=== PATIENT | male | born 1940 | race Caucasian/White ===

== ENCOUNTER 2016-06-24 17:02 | Emergency (ER) | payer MEDICARE, OTHER ==
--- NOTE | 2016-06-24 17:16 | ER Document Report ---
ED Medical Screen (RME) - General Stated Complaint: R KNEE INJURY Mode of Arrival: Wheelchair Information source: Patient Notes: Mr. moreland presents via the EMS for right knee pain. Reports he fell 4 hours in shower. He can put weight on the knee. He got dressed, put a brace on and called EMS. Did not hit his head. No change in LOC. I have greeted and performed a rapid initial assessment of this patient. A comprehensive ED assessment and evaluation of the patient, analysis of test results and completion of the medical decision making process will be conducted by additional ED providers. TRAVEL OUTSIDE OF THE [place] IN LAST 30 DAYS: No
--- NOTE | 2016-06-24 19:43 | ER Document Report ---
ED Extremity Problem, Lower - General Mode of Arrival: Wheelchair Information source: Patient, Relative - spouse TRAVEL OUTSIDE OF THE [place] IN LAST 30 DAYS: No - HPI Location: Knee - right Occurred: Other - see HPI note - General Chief Complaint: Knee Pain Stated Complaint: R KNEE INJURY Notes: Patient is a 76 year old male presenting to the ED for right knee pain. Patient states he fell while trying to get into the shower. Patient was helped up by his and took his shower. Patient was later sitting and attempted to get up to go to the bathroom when he had a lot of knee pain. Patient states his pain started directly after the fall but got worse as the night went on. Patient landed on his rear but his states that the patient's legs were in strange directions when he fell. Patient denies any head or neck pain. Patient also has had some increased pain in his knees over the past 6 months. Patient has no known allergies. (MASOUD DIGGS) - Related Data Allergies/Adverse Reactions: No Known Allergies Allergy (Unverified 06/24/16 17:16) Past Medical History - General Information source: Patient, Relative - spouse - Social History Smoking Status: Never Smoker Cigarette use (# per day): No Chew tobacco use (# tins/day): No Frequency of alcohol use: Rare Drug Abuse: None Family History: None Patient has suicidal ideation: No Patient has homicidal ideation: No Musculoskeltal Medical History: Reports Hx Arthritis - right knee Surgical Hx: Negative Review of Systems - Review of Systems Constitutional: No symptoms reported EENT: No symptoms reported Cardiovascular: No symptoms reported Respiratory: No symptoms reported Gastrointestinal: No symptoms reported Genitourinary: No symptoms reported Male Genitourinary: No symptoms reported Musculoskeletal: See HPI Skin: No symptoms reported Hematologic/Lymphatic: No symptoms reported Neurological/Psychological: No symptoms reported -: Yes All other systems reviewed and negative Physical Exam - Vital signs Interpretation: Hypertensive - General General appearance: Appears well, Alert In distress: Mild - HEENT Head: Normocephalic, Atraumatic Eyes: Normal Pupils: PERRL Mucous membranes: Moist - Respiratory Respiratory status: No respiratory distress Chest status: Nontender Breath sounds: Normal Chest palpation: Normal - Cardiovascular Rhythm: Regular Heart sounds: Normal auscultation Murmur: No - Abdominal Inspection: Normal Distension: No distension Bowel sounds: Normal Tenderness: Nontender Organomegaly: No organomegaly - Back Back: Normal, Nontender - Extremities General upper extremity: Normal inspection, Normal ROM, Normal strength General lower extremity: Other - no exterior sign of trauma, no bony tenderness , mild tenderness at posterior lateral aspect of proximal fibula, no ligamentous instability, no tenderness to the ankle, foot, or hip, good pulses bilaterally, no leg edema Shoulder: Laceration - Neurological Neuro grossly intact: Yes Cognition: Normal Yin Coma Scale Eye Opening: Spontaneous Yin Coma Scale Verbal: Oriented Yin Coma Scale Motor: Obeys Commands [place] Coma Scale Total: 15 Speech: Normal Sensory: Normal - Psychological Associated symptoms: Normal affect, Normal mood - Skin Skin Temperature: Warm Skin Moisture: Dry Discharge - Discharge Clinical Impression: Sprain of knee Condition: Stable Disposition: HOME, SELF-CARE Instructions: Ice & Elevation ([facility]), Knee Immobilizing Splint ([facility]), Sprained Knee ([facility]), Oral Narcotic Medication ([facility]) Additional Instructions: knee Sprain Your injury is a sprain. A sprain results from stretching or tearing of the ligaments, usually from a twisting injury. The ligaments will require time and protection in order to heal properly. Many sprains are quite disabling and should be taken seriously. The usual initial treatment of sprains is cold packs, elevation, and rest of the injured area. Your physician has assessed the seriousness of your ligament injury, and has outlined a treatment plan. Understand that this treatment may change, depending on how you progress. If a re-examination was recommended, it is important that you follow up as instructed. Call the doctor any time if there is severe pain, numbness, or loss of function in the injured area. Follow-up with your primary care physician in 3-4 days return for increasing worsening or new symptoms Prescriptions: Hydrocodone/Acetaminophen [[place]bridge 5-325 mg Tablet] 1 tab PO TID #20 tablet Referrals: BREE KAUFFMAN PA-C [Primary Care Provider] - Follow up as needed Scribe Documentation - Scribe Written by Sita:: Masoud Diggs 06/24/16 21:21 acting as scribe for :: Chris
[2016-06-24 20:51] VITALS: BP 138/80
== END 2016-06-24 20:47 | disposition home or self-care (01) ==
LOC: ER 17:02
DX: S83.91XA Sprain of unspecified site of right knee, initial encounter (principal); S41.019A Laceration without foreign body of unspecified shoulder, initial encounter; W18.2XXA Fall in (into) shower or empty bathtub, initial encounter; Y93.89 Activity, other specified; Y92.002 Bathroom of unspecified non-institutional (private) residence as the place of occurrence of the external cause; M17.11 Unilateral primary osteoarthritis, right knee; M25.561 Pain in right knee
CPT/HCPCS: 99284; 73564; 70450; L1830

== ENCOUNTER → 2016-07-31 | Outpatient (CLI) | payer MEDICARE, OTHER ==
[2016-07-31 13:07] LABS: ABSOLUTE BASOPHILS # (AUTO) 0.1 10^3/uL (0.0-0.2); ABSOLUTE EOSINOPHILS # (AUTO) 0.1 10^3/uL (0.0-0.6); ABSOLUTE LYMPHOCYTES (AUTO) 2.7 10^3/uL (0.5-4.7); ABSOLUTE MONOCYTES (AUTO) 0.5 10^3/uL (0.1-1.4); ABSOLUTE NEUT (AUTO) 5.1 10^3/uL (1.7-8.2); BASOPHILS % (AUTO) 0.7 % (0-2); HEMATOCRIT 40.7 % (37.9-51.0); HEMOGLOBIN 13.9 g/dL (13.5-17.0); LYMPHOCYTES % (AUTO) 31.8 % (13-45); MEAN CORPUSCULAR HEMOGLOBIN 31.3 pg (27.0-33.4); MEAN CORPUSCULAR HGB CONC 34.2 g/dL (32.0-36.0); MEAN CORPUSCULAR VOLUME 92 fl (80-97); MONOCYTES % (AUTO) 6.2 % (3-13); RED BLOOD COUNT 4.45 10^6/uL (4.35-5.55); RED CELL DISTRIBUTION WIDTH 13.8 % (11.5-14.0); SEGMENTED NEUTROPHILS % (AUTO) 60.3 % (42-78); WHITE BLOOD COUNT 8.4 10^3/uL (4.0-10.5)
--- NOTE | 2016-07-31 13:18 | EKG REPORT ---
SEVERITY:- NORMAL ECG - SINUS RHYTHM : Confirmed by: Armando Barba MD 31-Jul-2016 13:17:31
[2016-07-31 13:32] LABS: ANION GAP 16 (5-19); BLOOD UREA NITROGEN 18 mg/dL (7-20); CALCIUM 10.3 mg/dL (8.4-10.2); CARBON DIOXIDE 31 mmol/L (22-30); CHLORIDE 97 mmol/L (98-107); CREATININE RESULT 0.76 mg/dL (0.52-1.25); GLUCOSE 191 mg/dL (75-110); SODIUM 144.1 mmol/L (137-145)
== END ==
LOC: OD 11:45
PROVIDERS: ATTEND Orthopaedic Surgery
DX: M25.561 Pain in right knee (principal)
CPT/HCPCS: 36415; 71020; 80048; 85025; 93005; 93010

== ENCOUNTER 2017-05-28 23:05 | Emergency (ER) | payer MEDICARE, OTHER ==
[2017-05-28] MEDS ORDERED: RACEPINEPHRINE HCL 2.25% NEB 0.5 ML AMPUL NEB ONE (23:45)
[2017-05-29] MEDS ORDERED: FUROSEMIDE INJ/PF 100 MG/10 ML SDV IV ONE
--- NOTE | 2017-05-29 00:05 | ER Document Report ---
ED General - General Chief Complaint: Cough Stated Complaint: COUGH Time Seen by Provider: 05/28/17 23:36 Mode of Arrival: Ambulatory Information source: Patient TRAVEL OUTSIDE OF THE [place] IN LAST 30 DAYS: No COUNTRY TRAVELED TO/FROM: [facility] Notes: Patient is a 77-year-old male history of 6 cardiac stents last placement August 2016 with history of hypercholesterolemia hypertension and type 2 diabetes presents with report of progressive lower extremity, swelling with nonproductive cough and dyspnea on exertion and orthopnea for the past 2 weeks. The patient is supposed to be taking Lasix 20 mg, but he has not had any for a month as he complains it makes him urinate too frequently. Patient denies any chest pain or abdominal pain or nausea or vomiting. The patient reports no productive cough or fever or exposure to anyone who has been sick. Medications metformin, glyburide, a statin, Brilinta, metoprolol 12.5 mg XR, Lasix 20 mg daily, but the patient is not taking the Lasix for over a month. - Related Data Allergies/Adverse Reactions: No Known Allergies Allergy (Unverified 06/24/16 17:16) Past Medical History - General Information source: Patient - The - Social History Smoking Status: Former Smoker Chew tobacco use (# tins/day): No Frequency of alcohol use: None Drug Abuse: None Lives with: Family Family History: None Patient has suicidal ideation: No Patient has homicidal ideation: No - Past Medical History Cardiac Medical History: Reports: Hx Hypercholesterolemia, Hx Hypertension Endocrine Medical History: Reports: Hx Diabetes Mellitus Type 2 Renal/ Medical History: Denies: Hx Peritoneal Dialysis Musculoskeltal Medical History: Reports Hx Arthritis - right knee Past Surgical History: Reports: Hx Cardiac Catheterization - 6stents, Hx Orthopedic Surgery - R knee - Immunizations Hx Diphtheria, Pertussis, Tetanus Vaccination: Yes Review of Systems - Review of Systems Notes: REVIEW OF SYSTEMS: CONSTITUTIONAL : Denies fever, chills, or sweats. Denies recent illness. EENT: Denies eye, ear, throat, or mouth pain or symptoms. Denies nasal or sinus congestion or discharge. Denies throat, tongue, or mouth swelling or difficulty swallowing. CARDIOVASCULAR: Denies chest pain. Denies palpitations or racing or irregular heart beat. RESPIRATORY: Denies wheezing. GASTROINTESTINAL: Denies abdominal pain or distention. Denies nausea, vomiting , or diarrhea. Denies blood in vomitus, stools, or per rectum. Denies black, tarry stools. Denies constipation. GENITOURINARY: Denies difficulty urinating, painful urination, burning, frequency, blood in urine, or discharge. MUSCULOSKELETAL: Denies back or neck pain or stiffness. SKIN: Denies rash, lesions or sores. HEMATOLOGIC : Denies easy bruising or bleeding. LYMPHATIC: Denies swollen, enlarged glands. NEUROLOGICAL: Denies confusion or altered mental status. Denies passing out or loss of consciousness. Denies dizziness or lightheadedness. Denies headache. Denies weakness or paralysis or loss of use of either side. Denies problems with gait or speech. Denies sensory loss, numbness, or tingling. Denies seizures. PSYCHIATRIC: Denies anxiety or stress. Denies depression, suicidal ideation, or homicidal ideation. ALL OTHER SYSTEMS REVIEWED AND NEGATIVE. Dictation was performed using [employer] voice recognition software Physical Exam - Vital signs Vitals: Temp Pulse Resp BP Pulse Ox 97.5 F 74 16 162/74 H 96 05/28/17 23:10 05/28/17 23:10 05/28/17 23:10 05/28/17 23:10 05/28/17 23:10 - Notes Notes: PHYSICAL EXAMINATION: GENERAL: Well-appearing, well-nourished and in no acute distress. HEAD: Atraumatic, normocephalic. EYES: Pupils equal round and reactive to light, extraocular movements intact, sclera anicteric, conjunctiva are normal. ENT: Nares patent, oropharynx clear without exudates. Moist mucous membranes. NECK: Normal range of motion, supple without lymphadenopathy. Very mild JVD LUNGS: No wheezes, but the pt has rales both bases. HEART: Regular rate and rhythm with 1/6 TENA over apex. ABDOMEN: Soft, nontender, nondistended abdomen. No guarding, no rebound. No masses appreciated. Musculoskeletal: Normal range of motion, no pitting or edema. No cyanosis. NEUROLOGICAL: Cranial nerves grossly intact. Normal speech, normal gait. Normal sensory, motor exams PSYCH: Normal mood, normal affect. SKIN: Warm, Dry, normal turgor, no rashes or lesions noted. Course - Re-evaluation Re-evalutation: 05/29/17 00:36 Patient was given IV Lasix.. 05/29/17 02:03 Patient diuresed over 1 L of urine and felt better. Patient had stable vitals with good oxygen saturation and a stable blood pressure and was ambulatory without complaint or dyspnea. Troponin was negative. There is no renal failure. There is no anemia. BNP was consistent with mild CHF. Chest x-ray overall was nondiagnostic. Patient and his were counseled that he needed to take his medications regularly and he will follow-up with local practitioner. - Vital Signs Vital signs: Temp Pulse Resp BP Pulse Ox 97.5 F 74 23 H 162/74 H 99 05/28/17 23:10 05/28/17 23:10 05/29/17 00:04 05/28/17 23:10 05/29/17 00:10 - Laboratory Result Diagrams: 05/29/17 00:20 05/29/17 00:20 Laboratory results interpreted by me: 05/29/17 05/29/17 05/29/17 00:20 00:20 00:20 RBC 4.12 L Hgb 12.7 L RDW 14.4 H Glucose 219 H ALT 20 L NT-Pro-B Natriuret Pep 1540 H - EKG Interpretation by De EKG shows normal: Sinus rhythm Additional EKG results interpreted by me: 05/29/17 00:35 EKG as interpreted by pr showed normal sinus rhythm heart rate is 73. There is no gross evidence for acute [place] or ischemia noted. There was 1 PVC noted. There is no significant change when compared to previous EKG reviewed from . Discharge - Discharge Clinical Impression: CHF (congestive heart failure) Qualifiers: Heart failure type: unspecified Heart failure chronicity: acute Qualified Code( s): I50.9 - Heart failure, unspecified Condition: Stable Disposition: HOME, SELF-CARE Instructions: Congestive Heart Failure ([facility]) Additional Instructions: Take your medications regularly. Return to the emergency department case of difficulty breathing or chest pain. Referrals: LYNDA RIOS MD [ACTIVE STAFF] - Follow up in 3-5 days
[2017-05-29 00:32] LABS: ABSOLUTE BASOPHILS # (AUTO) 0.1 10^3/uL (0.0-0.2); ABSOLUTE EOSINOPHILS # (AUTO) 0.2 10^3/uL (0.0-0.6); ABSOLUTE LYMPHOCYTES (AUTO) 2.3 10^3/uL (0.5-4.7); ABSOLUTE MONOCYTES (AUTO) 0.6 10^3/uL (0.1-1.4); ABSOLUTE NEUT (AUTO) 5.4 10^3/uL (1.7-8.2); BASOPHILS % (AUTO) 0.8 % (0-2); EOSINOPHILS % (AUTO) 2.2 % (0-6); HEMATOCRIT 38.3 % (37.9-51.0); HEMOGLOBIN 12.7 g/dL (13.5-17.0); LYMPHOCYTES % (AUTO) 26.9 % (13-45); MEAN CORPUSCULAR HEMOGLOBIN 30.8 pg (27.0-33.4); MEAN CORPUSCULAR HGB CONC 33.2 g/dL (32.0-36.0); MEAN CORPUSCULAR VOLUME 93 fl (80-97); MONOCYTES % (AUTO) 6.6 % (3-13); PLATELET COUNT 264 10^3/uL (150-450); RED BLOOD COUNT 4.12 10^6/uL (4.35-5.55); RED CELL DISTRIBUTION WIDTH 14.4 % (11.5-14.0); SEGMENTED NEUTROPHILS % (AUTO) 63.5 % (42-78); TOTAL CELLS COUNTED % (AUTO) 100 %; WHITE BLOOD COUNT 8.4 10^3/uL (4.0-10.5)
[2017-05-29 00:46] LABS: ALANINE AMINOTRANSFERASE 20 U/L (21-72); ALBUMIN 4.1 g/dL (3.5-5.0); ALKALINE PHOSPHATASE 56 U/L (38-126); ANION GAP 11 (5-19); ASPARTATE AMINO TRANSFERASE 20 U/L (17-59); BILIRUBIN,DIRECT 0.2 mg/dL (0.0-0.4); BILIRUBIN,TOTAL 0.4 mg/dL (0.2-1.3); BLOOD UREA NITROGEN 14 mg/dL (7-20); CALCIUM 9.5 mg/dL (8.4-10.2); CARBON DIOXIDE 30 mmol/L (22-30); CHLORIDE 99 mmol/L (98-107); GLUCOSE 219 mg/dL (75-110); SODIUM 140.3 mmol/L (137-145); TOTAL PROTEIN 6.5 g/dL (6.3-8.2)
[2017-05-29 00:57] LABS: TROPONIN I 0.013 ng/mL
--- NOTE | 2017-05-29 01:21 | RADIOLOGY REPORT (SQ) ---
EXAM DESCRIPTION: CHEST SINGLE VIEW CLINICAL HISTORY: 77 years Male, dyspnea COMPARISON: July 31, 2016 NUMBER OF VIEWS/TECHNIQUE: 1/AP LIMITATIONS: None. FINDINGS: Prominent interstitium, minimally obscured bilateral costophrenic angles, normal cardiac silhouette, atherosclerosis, and intact bony thorax. IMPRESSION: No acute cardiopulmonary findings.
[2017-05-29 02:29] VITALS: BP 138/78
--- NOTE | 2017-05-29 07:54 | EKG REPORT ---
SEVERITY:- ABNORMAL ECG - SINUS RHYTHM VENTRICULAR PREMATURE COMPLEX POOR R WAVE PROGRESSION ANTERIOR LEADS, CONSIDER OLD ANTEROSEPTAL [place] : Confirmed by: Armando Barba MD 29-May-2017 07:54:24
== END 2017-05-29 02:38 | disposition home or self-care (01) ==
LOC: ER 23:05
DX: I11.0 Hypertensive heart disease with heart failure (principal); I50.9 Heart failure, unspecified; T50.1X6A Underdosing of loop [high-ceiling] diuretics, initial encounter; Z91.128 Patient's intentional underdosing of medication regimen for other reason; Z91.14 Patient's other noncompliance with medication regimen; R05 Cough; E78.00 Pure hypercholesterolemia, unspecified; E11.9 Type 2 diabetes mellitus without complications; Z79.84 Long term (current) use of oral hypoglycemic drugs; Z79.899 Other long term (current) drug therapy; Z79.02 Long term (current) use of antithrombotics/antiplatelets; Z95.5 Presence of coronary angioplasty implant and graft
CPT/HCPCS: 93005; 99284; 96374; 36415; 83735; 85025; 80053; 84484; 83880; 71045; 93010; J1940

== ENCOUNTER 2017-08-07 00:44 | Inpatient (IN) | payer MEDICARE, OTHER ==
--- NOTE | 2017-08-07 00:57 | ER Document Report ---
ED General - General Mode of Arrival: Medic Information source: Patient TRAVEL OUTSIDE OF THE [place] IN LAST 30 DAYS: No COUNTRY TRAVELED TO/FROM: [facility] <RANDEE STEELE - Last Filed: 08/07/17 00:50> <TJCARLYLE - Last Filed: 08/07/17 03:54> - General Chief Complaint: Cough Stated Complaint: COUGH Time Seen by Provider: 08/07/17 00:49 Notes: 77 y.o male with a PMHx of type 2 DM, HTN, HLD, and cardiac stents with last placement in August 2016 presents to the ED with cough of onset day before yesterday and states that yesterday the cough has been constant throughout the day. Pt states that it feels like there is something he needs to cough up and he states that he has had to sit up in order to sleep. EMS reports that pt said the cough has been continuous for the past 3-4 weeks. Pt was here on May 28 for similar sx and at that time he was not taking his Lasix like he was supposed to. Superintendent System Operation is Dr. Reilly and PCP is Dr. Molina. (RANDEE STEELE) - Related Data Allergies/Adverse Reactions: No Known Allergies Allergy (Unverified 06/24/16 17:16) Past Medical History - General Information source: Patient - Social History Smoking Status: Unknown if Ever Smoked Family History: None - Past Medical History Cardiac Medical History: Reports: Hx Hypercholesterolemia, Hx Hypertension Endocrine Medical History: Reports: Hx Diabetes Mellitus Type 2 Renal/ Medical History: Denies: Hx Peritoneal Dialysis Musculoskeltal Medical History: Reports Hx Arthritis - right knee Past Surgical History: Reports: Hx Cardiac Catheterization - 6stents, Hx Orthopedic Surgery - R knee - Immunizations Hx Diphtheria, Pertussis, Tetanus Vaccination: Yes <RANDEE STEELE - Last Filed: 08/07/17 00:50> Review of Systems - Review of Systems Constitutional: No symptoms reported EENT: No symptoms reported Cardiovascular: No symptoms reported Respiratory: See HPI, Cough Gastrointestinal: No symptoms reported Genitourinary: No symptoms reported Male Genitourinary: No symptoms reported Musculoskeletal: No symptoms reported Skin: No symptoms reported Hematologic/Lymphatic: No symptoms reported Neurological/Psychological: No symptoms reported -: Yes All other systems reviewed and negative <RANDEE STEELE - Last Filed: 08/07/17 00:50> Physical Exam <RANDEE STEELE - Last Filed: 08/07/17 00:50> <CARLYLE SPENCER - Last Filed: 08/07/17 03:54> - Vital signs Vitals: Resp Pulse Ox 11 L 95 08/07/17 00:58 08/07/17 00:58 - Notes Notes: Physical Exam: General: Alert, appears well. HEENT: Normocephalic. Atraumatic. PERRL. Extraocular movements intact. Oropharynx clear. Neck: Supple. Non-tender. Respiratory: Dyspneic. frequent cough. Gurgling sound in tracheal region when he coughs. Cardiovascular: Regular rate and rhythm. Abdominal: Obese. Soft, non-tender. No distension. Normal Bowel Sounds. Back: Non-tender. No deformity or step off. Extremities: Moves all four extremities. Upper extremities: Normal inspection. Normal ROM. Lower extremities: Trace peripheral edema. Normal ROM. Skin: Right nipple has circumferential areola thickening which pt states has been there for a very long time. Neurological: Normal cognition. AAOx4. Normal speech. (RANDEE STEELE) Course <RANDEE STEELE - Last Filed: 08/07/17 00:50> - Laboratory Result Diagrams: 08/07/17 00:21 08/07/17 00:21 - Diagnostic Test Radiology reviewed: Image reviewed, Reports reviewed - Chest x-ray does not show acute process - EKG Interpretation by Me EKG shows normal: Sinus rhythm, [place], QRS Complexes. abnormal: Intervals - Borderline prolonged QT interval, ST-T Waves - Nonspecific lateral T abnormalities Rate: Normal - 75 Rhythm: NSR, PVC's - Multifocal PVCs When compared to previous EKG there are: No significant change - Consults Dr. Mckoy Time consulted: 03:08 Consulted provider: will come to ER <CARLYLE SPENCER - Last Filed: 08/07/17 03:54> - Re-evaluation Re-evalutation: 08/07/17 03:03 The patient got up to urinate, and when he got back in the stretcher his heart rate had changed to in atrial fibrillation with RVR with a rate in the 140-150 range. He states he feels fine with his heart rate. An EKG was done. (CARLYLE SPENCER) - Vital Signs Vital signs: Temp Pulse Resp BP Pulse Ox 12 119/67 96 08/07/17 02:00 08/07/17 01:46 08/07/17 02:00 - Laboratory Laboratory results interpreted by me: 08/07/17 08/07/17 08/07/17 00:21 00:21 00:21 WBC 11.0 H RBC 4.00 L Hgb 12.4 L Hct 37.0 L Absolute Neutrophils 8.5 H Carbon Dioxide 33 H Glucose 152 H ALT 18 L Creatine Kinase 42 L NT-Pro-B Natriuret Pep 1510 H Ur Leukocyte Esterase Urine Ascorbic Acid 08/07/17 01:45 WBC RBC Hgb Hct Absolute Neutrophils Carbon Dioxide Glucose ALT Creatine Kinase NT-Pro-B Natriuret Pep Ur Leukocyte Esterase SMALL H Urine Ascorbic Acid 40 H Critical Care Note - Critical Care Note Total time excluding time spent on procedures (mins): 35 <CARLYLE SPENCER - Last Filed: 08/07/17 03:54> Discharge <RANDEE STEELE - Last Filed: 08/07/17 00:50> - Discharge Admitting Provider: Hospitalist Unit Admitted: IMCU <CARLYLE SPENCER - Last Filed: 08/07/17 03:54> - Discharge Clinical Impression: Atrial fibrillation, new onset, Atrial fibrillation with RVR, Persistent cough Condition: Good Disposition: ADMITTED INPATIENT Scribe Attestation: 08/07/17 01:54 I personally performed the services described in the documentation, reviewed and edited the documentation which was dictated to the scribe in my presence, and it accurately records my words and actions. (CARLYLE SPENCER) Scribe Documentation - Scribe Written by Sita:: Sita Decker 08/07/2017 0051 acting as scribe for :: Tj <RANDEE STEELE - Last Filed: 08/07/17 00:50>
[2017-08-07 01:07] LABS: ABSOLUTE EOSINOPHILS # (AUTO) 0.2 10^3/uL (0.0-0.6); ABSOLUTE LYMPHOCYTES (AUTO) 1.6 10^3/uL (0.5-4.7); ABSOLUTE MONOCYTES (AUTO) 0.6 10^3/uL (0.1-1.4); ABSOLUTE NEUT (AUTO) 8.5 10^3/uL (1.7-8.2); BASOPHILS % (AUTO) 0.3 % (0-2); EOSINOPHILS % (AUTO) 2.2 % (0-6); HEMOGLOBIN 12.4 g/dL (13.5-17.0); MEAN CORPUSCULAR HEMOGLOBIN 31.1 pg (27.0-33.4); MEAN CORPUSCULAR HGB CONC 33.6 g/dL (32.0-36.0); MEAN CORPUSCULAR VOLUME 93 fl (80-97); PLATELET COUNT 190 10^3/uL (150-450); RED CELL DISTRIBUTION WIDTH 13.8 % (11.5-14.0); SEGMENTED NEUTROPHILS % (AUTO) 77.5 % (42-78); TOTAL CELLS COUNTED % (AUTO) 100 %
[2017-08-07 01:17] LABS: ALANINE AMINOTRANSFERASE 18 U/L (21-72); ALBUMIN 4.3 g/dL (3.5-5.0); ALKALINE PHOSPHATASE 57 U/L (38-126); ANION GAP 12 (5-19); ASPARTATE AMINO TRANSFERASE 28 U/L (17-59); BILIRUBIN,DIRECT 0.4 mg/dL (0.0-0.4); BILIRUBIN,TOTAL 0.8 mg/dL (0.2-1.3); BLOOD UREA NITROGEN 18 mg/dL (7-20); CALCIUM 9.6 mg/dL (8.4-10.2); CARBON DIOXIDE 33 mmol/L (22-30); CHLORIDE 100 mmol/L (98-107); CREATINE KINASE 42 U/L (55-170); GLUCOSE 152 mg/dL (75-110); POTASSIUM 3.7 mmol/L (3.6-5.0); SODIUM 144.6 mmol/L (137-145); TOTAL PROTEIN 7.7 g/dL (6.3-8.2)
[2017-08-07 01:36] LABS: TROPONIN I 0.019 ng/mL
[2017-08-07] MEDS ORDERED: IPRATROPIUM/ALBUTEROL 0.5-2.5 MG/3 ML AMPUL NEB ONE (01:46)
[2017-08-07] MEDS ORDERED: FUROSEMIDE INJ/PF 40 MG/4 ML SDV IV ONE (01:46)
--- NOTE | 2017-08-07 01:55 | RADIOLOGY REPORT (SQ) ---
EXAM DESCRIPTION: CR chest one view CLINICAL HISTORY: 77 years Male, Shortness of breath, coughing COMPARISON: None. NUMBER OF VIEWS/TECHNIQUE: 1/AP FINDINGS: Adequate lung volume, clear parenchyma, normal cardiac silhouette, atherosclerosis, and intact bony thorax. IMPRESSION: No acute cardiopulmonary findings.
[2017-08-07 02:41] LABS: APPEARANCE,URINE CLEAR; BILIRUBIN,URINE NEGATIVE (NEGATIVE); COLOR,URINE YELLOW; GLUCOSE, URINE NEGATIVE (NEGATIVE); KETONES,URINE NEGATIVE (NEGATIVE); LEUKOCYTE ESTERASE,URINE SMALL (NEGATIVE); NITRITE,URINE NEGATIVE (NEGATIVE); PROTEIN,URINE NEGATIVE (NEGATIVE); URINE SPECIFIC GRAVITY 1.019; UROBILINOGEN,URINE NEGATIVE mg/dL (<2.0)
[2017-08-07] MEDS ORDERED: DILTIAZEM HCL INJ 25 MG/5 ML VIAL IV ONE (03:09)
[2017-08-07] MEDS ORDERED: DILTIAZEM HCL INJ 25 MG/5 ML VIAL ONE (03:21)
[2017-08-07] MEDS ORDERED: METOPROLOL TARTRATE PF/INJ 5 MG/5 ML SDV IV ONE ×3 (03:31→16:30)
[2017-08-07] MEDS ORDERED: CHLORPHENIRAMINE MALEATE 4 MG TABLET PO ONE (04:03)
[2017-08-07] MEDS ORDERED: DIGOXIN INJ 0.5 MG/2 ML AMPULE IV ONE ×2 (04:05→04:55)
[2017-08-07] MEDS ORDERED: METOPROLOL TARTRATE PF/INJ 5 MG/5 ML SDV IV PRN (04:06)
[2017-08-07] MEDS ORDERED: ACETAMINOPHEN 325 MG TABLET PO PRN (04:07)
[2017-08-07] MEDS ORDERED: MAGNESIUM HYDROXIDE SUSP 30 ML UDCUP PO PRN (04:07)
[2017-08-07] MEDS ORDERED: MAG HYDROX/AL HYDROX/SIMETH SUSP 30 ML UDCUP PO PRN (04:07)
[2017-08-07] MEDS ORDERED: IPRATROPIUM BROMIDE 0.02% NEB 0.5 MG/2.5 ML AMPUL NEB ONE (04:15)
[2017-08-07] MEDS ORDERED: FLUTICASONE NASAL SPRAY 50 MCG/SPRY 120 SPRAY/16 GM NASL ONE (04:15)
[2017-08-07] MEDS ORDERED: LEVALBUTEROL HCL NEB 1.25 MG/3 ML AMPUL NEB ONE (04:15)
[2017-08-07] MEDS ORDERED: CHLORPHENIRAMINE MALEATE 4 MG TABLET ONE (05:19)
[2017-08-07] MEDS ORDERED: FLUTICASONE NASAL SPRAY 50 MCG/SPRY 120 SPRAY/16 GM ONE (05:19)
[2017-08-07] MEDS ORDERED: HEPARIN SOD (PORCINE) 5,000 UNIT/ML 1 ML SYRINGE SUBCUT SCH (06:00)
[2017-08-07] MEDS ORDERED: DEXTROSE 40% GEL 15 GM TUBE PO PRN ×2 (06:30)
[2017-08-07] MEDS ORDERED: GLUCAGON,HUMAN RECOMB 1 MG INJ IM PRN (06:30)
[2017-08-07] MEDS ORDERED: DEXTROSE 50%-WATER 25 GM/50 ML DISP.SYRIN IV PRN ×2 (06:30)
--- NOTE | 2017-08-07 06:34 | PDOC H&P ---
History of Present Illness Admission Date/PCP: 08/07/17 04:02 Patient complains of: Shortness of breath History of Present Illness: KALEN ROLON is a 77 year old male with history of hypertension, congestive heart failure, coronary artery disease status post stenting 6. Patient presents with 48 hours of rhinorrhea, cough and shortness of breath. In the emergency room is found to be in A. fib with RVR he receives IV Cardizem and referred to the hospitalist for admission. Patient remains in A. fib with RVR in the 140s requiring IV digoxin followed by IV Lopressor and admitted to IMCU. Patient denies previous episode, chest pain. He admits palpitations of the last 12 hours, no new medications admitting paroxysms of cough secondary to URI. Past Medical History Cardiac Medical History: Reports: Hyperlipidema, Hypertension Pulmonary Medical History: Reports: Bronchitis Endocrine Medical History: Reports: Diabetes Mellitus Type 1 Musculoskeltal Medical History: Reports: Arthritis - right knee Past Surgical History Past Surgical History: Reports: Cardiac Catheterization - 6stents, Orthopedic Surgery - R knee Social History Information Source: Patient Lives with: Spouse/Significant other Smoking Status: Former Smoker Cigarettes Packs Per Day: 1 Frequency of Alcohol Use: Rare - Advance Directive Resuscitation Status: Full Code Family History Family History: COPD Parental Family History Reviewed: Yes Children Family History Reviewed: Yes Sibling(s) Family History Reviewed.: Yes Medication/Allergy Home Medications: Furosemide [Lasix] 40 mg PO DAILY 05/29/17 Glimepiride 4 mg PO BID 05/29/17 Lisinopril 5 mg PO DAILY 05/29/17 Metformin HCl 750 mg PO BID 05/29/17 Metoprolol Succinate [Toprol XL 100 mg Tablet] 100 mg PO BID 05/29/17 Ticagrelor [Brilinta 90 mg Tablet] 90 mg PO BID 05/29/17 Allergies/Adverse Reactions: No Known Allergies Allergy (Unverified 06/24/16 17:16) Review of Systems Constitutional: PRESENT: as per HPI Eyes: ABSENT: visual disturbances Ears: ABSENT: hearing changes Cardiovascular: ABSENT: chest pain, dyspnea on exertion, edema, orthropnea, palpitations Respiratory: PRESENT: as per HPI, cough, dyspnea, sputum. ABSENT: hemoptysis Gastrointestinal: ABSENT: abdominal pain, constipation, diarrhea, hematemesis, hematochezia, nausea, vomiting Genitourinary: ABSENT: dysuria, hematuria Musculoskeletal: ABSENT: joint swelling Integumentary: ABSENT: rash, wounds Neurological: ABSENT: abnormal gait, abnormal speech, confusion, dizziness, focal weakness, syncope Psychiatric: ABSENT: anxiety, depression, homidical ideation, suicidal ideation Endocrine: ABSENT: cold intolerance, heat intolerance, polydipsia, polyuria Hematologic/Lymphatic: ABSENT: easy bleeding, easy bruising Physical Exam Vital Signs: Temp Pulse Resp BP Pulse Ox 12 119/67 96 08/07/17 02:00 08/07/17 01:46 08/07/17 02:00 Intake & Output 08/05/17 08/06/17 08/07/17 11:59 11:59 11:59 Weight 97.6 kg General appearance: PRESENT: cooperative, mild distress. ABSENT: disheveled Head exam: PRESENT: atraumatic, normocephalic Eye exam: PRESENT: conjunctiva pink, EOMI, PERRLA. ABSENT: scleral icterus Ear exam: PRESENT: normal external ear exam Mouth exam: PRESENT: moist, tongue midline Neck exam: ABSENT: carotid bruit, JVD, lymphadenopathy, thyromegaly Respiratory exam: PRESENT: accessory muscle use, clear to auscultation oksana, crackles, prolonged expiratory phas, rales, tachypnea. ABSENT: rhonchi, wheezes Cardiovascular exam: PRESENT: irregular rhythm, tachycardia. ABSENT: diastolic murmur, rubs, systolic murmur Pulses: PRESENT: normal dorsalis pedis pul Vascular exam: PRESENT: normal capillary refill GI/Abdominal exam: PRESENT: normal bowel sounds, soft. ABSENT: distended, guarding, mass, organolmegaly, rebound, tenderness Rectal exam: PRESENT: deferred Extremities exam: PRESENT: full ROM. ABSENT: calf tenderness, clubbing, pedal edema Neurological exam: PRESENT: alert, awake, oriented to person, oriented to place , oriented to time, oriented to situation, CN II-XII grossly intact. ABSENT: motor sensory deficit Psychiatric exam: PRESENT: appropriate affect, normal mood. ABSENT: homicidal ideation, suicidal ideation Skin exam: PRESENT: dry, intact, warm. ABSENT: cyanosis, rash Results Impressions: Chest X-Ray 08/07/17 00:56 IMPRESSION: No acute cardiopulmonary findings. Assessment & Plan - Diagnosis (1) Atrial fibrillation, new onset Is this a current diagnosis for this admission?: Yes Plan: Likely secondary to underlying COPD and acute bronchitis. Cardizem, digoxin and resumption of outpatient Lopressor. Follow-up cardiac enzymes, 2D echo (2) Acute bronchitis Is this a current diagnosis for this admission?: Yes Plan: Xopenex and Atrovent, empiric antibiotics (3) Atrial fibrillation with RVR Is this a current diagnosis for this admission?: Yes Plan: Please see #1 in addition to Lovenox 1 mg/kg - Time Time Spent: 50 to 70 Minutes - Inpatient Certification Medical Necessity: Need Close Monitoring Due to Risk of Patient Decompensation
[2017-08-07] MEDS ORDERED: ENOXAPARIN SODIUM INJ 100 MG/1 ML DISP.SYRIN SUBCUT ONE (06:45)
[2017-08-07 07:34] LABS: CHOLESTEROL 133.52 mg/dL (0-200); CREATINE KINASE 33 U/L (55-170); TRIGLYCERIDES 70 mg/dL (<150)
--- NOTE | 2017-08-07 07:42 | EKG REPORT ---
SEVERITY:- ABNORMAL ECG - ATRIAL FIBRILLATION WITH RAPID V-RATE 159/MIN BORDERLINE LEFT AXIS DEVIATION PROBABLE POSTERIOR INFARCT REPOLARIZATION ABNORMALITY, PROB RATE RELATED : Confirmed by: Armando Barba MD 07-Aug-2017 07:41:15
--- NOTE | 2017-08-07 07:42 | EKG REPORT ---
SEVERITY:- ABNORMAL ECG - SINUS RHYTHM MULTIFORM VENTRICULAR PREMATURE COMPLEXES NONSPECIFIC T ABNORMALITIES, LATERAL LEADS BORDERLINE PROLONGED QT INTERVAL : Confirmed by: Armando Barba MD 07-Aug-2017 07:41:45
[2017-08-07 07:45] LABS: DIRECT LDL 64 mg/dL (<100)
[2017-08-07 07:47] LABS: CREATINE KINASE MB 0.62 ng/mL (<4.55); TROPONIN I 0.017 ng/mL
[2017-08-07] MEDS: INSULIN LISPRO 100 UNIT/ML 3 ML VIAL SUBCUT PRN ×4 (08:22→21:34)
[2017-08-07] MEDS: METOPROLOL SUCCINATE 50 MG TAB.SR.24H PO SCH ×2 (08:41→18:50)
[2017-08-07] MEDS ORDERED: MAGNESIUM SULFATE 4 GM/D5W 100 ML IV ONE (09:00)
[2017-08-07] MEDS: FUROSEMIDE INJ/PF 40 MG/4 ML SDV IV SCH (09:49)
[2017-08-07] MEDS: POTASSIUM CHLORIDE 10 MEQ TABLET.SA PO SCH (09:50)
[2017-08-07] MEDS: GUAIFENESIN 600 MG TABLET.SA PO SCH ×2 (09:50→21:18)
[2017-08-07] MEDS: DOCUSATE SODIUM 100 MG CAPSULE PO SCH (09:50)
[2017-08-07] MEDS: APIXABAN 5 MG TABLET PO SCH ×2 (09:50→19:42)
[2017-08-07] MEDS: TICAGRELOR 90 MG TABLET PO SCH ×2 (09:51→19:42)
[2017-08-07] MEDS ORDERED: AMIODARONE HCL 150 MG in DEXTROSE 5%-WATER 100 ML IV ONE (11:00)
[2017-08-07] MEDS ORDERED: IPRATROPIUM BROMIDE 0.02% NEB 0.5 MG/2.5 ML AMPUL NEB SCH (12:00)
[2017-08-07] MEDS ORDERED: LEVALBUTEROL HCL NEB 1.25 MG/3 ML AMPUL NEB SCH (12:00)
[2017-08-07] MEDS: DEXTROSE 5%-WATER 500 ML with AMIODARONE HCL 900 MG IV PRN ×2 (12:09)
[2017-08-07 13:24] LABS: CREATINE KINASE MB 0.62 ng/mL (<4.55); TROPONIN I 0.027 ng/mL
[2017-08-07] MEDS: IPRATROPIUM BROMIDE 0.02% NEB 0.5 MG/2.5 ML AMPUL NEB SCH ×2 (13:53→20:35)
[2017-08-07] MEDS: LEVALBUTEROL HCL NEB 1.25 MG/3 ML AMPUL NEB SCH ×2 (13:53→20:35)
--- NOTE | 2017-08-07 15:14 | PDOC PROGRESS REPORT ---
Subjective Progress Note for:: 08/07/17 Subjective:: Patient states that shortness of breath is better when compared to when he came in. He states that he is smoked several years ago. He denies history of COPD or sleep apnea. Review of systems All organ systems evaluated and negative except as in subjective All laboratories and significant diagnostics have been reviewed Reason For Visit: AFIB, ACUTE BRONCHITIS, HEART FAILURE Physical Exam Vital Signs: Temp Pulse Resp BP Pulse Ox 98.2 F 117 H 17 119/67 99 08/07/17 08:14 08/07/17 08:14 08/07/17 08:14 08/07/17 08:14 08/07/17 08:14 Intake & Output 08/06/17 08/07/17 08/08/17 06:59 06:59 06:59 Weight 97.6 kg General appearance: PRESENT: no acute distress, cooperative, obese Head exam: PRESENT: atraumatic, normocephalic Eye exam: PRESENT: conjunctiva pink, EOMI, PERRLA Mouth exam: PRESENT: moist Neck exam: PRESENT: full ROM. ABSENT: JVD, lymphadenopathy, tenderness Respiratory exam: PRESENT: clear to auscultation oksana Cardiovascular exam: PRESENT: irregular rhythm. ABSENT: diastolic murmur, systolic murmur Vascular exam: PRESENT: normal capillary refill GI/Abdominal exam: PRESENT: normal bowel sounds, soft. ABSENT: tenderness Extremities exam: PRESENT: full ROM, pedal edema Musculoskeletal exam: PRESENT: ambulatory Neurological exam: PRESENT: alert, awake, oriented to person, oriented to place , oriented to time, oriented to situation, CN II-XII grossly intact Psychiatric exam: PRESENT: appropriate affect, normal mood Skin exam: PRESENT: intact, normal color Results Laboratory Results: 08/07/17 07:10 Magnesium 1.4 L Triglycerides 70 Cholesterol 133.52 LDL Cholesterol Direct 64 VLDL Cholesterol 14.0 HDL Cholesterol 54 08/07/17 08/07/17 07:10 07:10 Creatine Kinase 33 L CK-MB (CK-2) 0.62 Troponin I 0.017 Impressions: Chest X-Ray 08/07/17 00:56 IMPRESSION: No acute cardiopulmonary findings. Assessment & Plan - Diagnosis (1) Non-sustained ventricular tachycardia Is this a current diagnosis for this admission?: Yes Plan: Start amiodarone drip and replace magnesium (2) Acute bronchitis Qualifiers: Bronchitis organism: unspecified organism Qualified Code(s): J20.9 - Acute bronchitis, unspecified Is this a current diagnosis for this admission?: Yes Plan: Suspect that this patient may have underlying obstructive sleep apnea and possibly COPD. Continue present management (3) Atrial fibrillation with RVR Is this a current diagnosis for this admission?: Yes Plan: To increase dose of Toprol-XL as he is having episodes of nonsustained V. tach to start amiodarone drip. Consult cardiology. To start patient on Eliquis (4) Hypomagnesemia Is this a current diagnosis for this admission?: Yes Plan: To replace IV and trend - Time Time Spent with patient: 25-34 minutes Anticipated discharge: Home Within: within 72 hours - Inpatient Certification Based on my medical assessment, after consideration of the patient's comorbidities, presenting symptoms, or acuity I expect that the services needed warrant INPATIENT care.: Yes I certify that my determination is in accordance with my understanding of Medicare's requirements for reasonable and necessary INPATIENT services [42 CFR 412.3e].: Yes Medical Necessity: Need Close Monitoring Due to Risk of Patient Decompensation, Need For Continuous Telemetry Monitoring, Need for Nebulizer Therapy and Monitoring of Response
[2017-08-07 15:50] LABS: ANION GAP 14 (5-19)
[2017-08-07 16:05] LABS: BLOOD UREA NITROGEN 17 mg/dL (7-20); CALCIUM 9.6 mg/dL (8.4-10.2); CARBON DIOXIDE 31 mmol/L (22-30); CHLORIDE 96 mmol/L (98-107); GLUCOSE 177 mg/dL (75-110); POTASSIUM 3.9 mmol/L (3.6-5.0); SODIUM 140.7 mmol/L (137-145)
[2017-08-07] MEDS ORDERED: METOPROLOL SUCCINATE 25 MG TAB.SR.24H PO ONE (16:30)
--- NOTE | 2017-08-07 18:20 | EKG REPORT ---
SEVERITY:- ABNORMAL ECG - ATRIAL FIBRILLATION PAIRED VENTRICULAR PREMATURE COMPLEXES BORDERLINE LEFT AXIS DEVIATION NONSPECIFIC T ABNORMALITIES, LATERAL LEADS BORDERLINE PROLONGED QT INTERVAL : Confirmed by: Armando Barba MD 07-Aug-2017 18:19:26
[2017-08-07 19:19] LABS: CREATINE KINASE MB 0.73 ng/mL (<4.55); TROPONIN I 0.027 ng/mL
[2017-08-07] MEDS: ACETYLCYSTEINE 20% SOLN 800 MG/4 ML VIAL.NEB NEB SCH (20:41)
[2017-08-07] MEDS: FLUTICASONE NASAL SPRAY 50 MCG/SPRY 120 SPRAY/16 GM NASL SCH (21:18)
[2017-08-07] MEDS ORDERED: ENOXAPARIN SODIUM INJ 100 MG/1 ML DISP.SYRIN SUBCUT SCH (22:00)
--- NOTE | 2017-08-07 22:32 | XCELERA REPORT ---
[address] [address] Transthoracic Echocardiogram Report Name: KALEN ROLON Age: 77 yrs Gender: Male : 1940 Patient Status: Inpatient Patient Location: ICU^[id number] Study Date: 08/07/2017 02:37 PM Height: 70 in Weight: 215 lb BSA: 2.2 m2 Procedure: A complete two-dimensional transthoracic echocardiogram was performed (2D, M-mode, spectral and color flow Doppler). The study was technically difficult with many images being suboptimal in quality. Reason For Study: v-tach Ordering Physician: GEORGE RIOS Performed By: Koffi Holguin Interpretation Summary Left ventricular systolic function is moderately reduced. The Ejection Fraction estimate is 35-40% There is borderline concentric left ventricular hypertrophy. The left ventricle is borderline dilated. Doppler measurements suggest pseudonormalized left ventricular relaxation, which is associated with grade II/IV or mild to moderate diastolic dysfunction Regional wall motion abnormalities cannot be excluded due to limited visualization. The right ventricular systolic function is normal. The right atrium is normal. The left atrium is mildly dilated. There is no mitral valve stenosis. There is a trace amount of mitral regurgitation There is no aortic valve stenosis There is a trace amount of aortic regurgitation There is a trace or physiologic amount of tricuspid regurgitation Tricuspid regurgitation jet envelope not well defined to measure RV systolic pressure accurately. The aortic root is not well visualized but is probably normal size. The inferior vena cava appeared normal and decreased > 50% with respiration (RAP 5-10 mmHg) There is no pericardial effusion. MMode/2D Measurements & Calculations RVDd: 3.0 cm LVIDd: 6.2 cm FS: 30.7 % Ao root diam: 3.5 cm IVSd: 0.72 cm LVIDs: 4.3 cm EDV(Teich): 192.4 ml LVPWd: 0.84 cm ESV(Teich): 82.2 ml Ao root area: 9.6 cm2 EF(Teich): 57.3 % LA dimension: 3.7 cm Doppler Measurements & Calculations MV E max noah: MV P1/2t max noah: Ao V2 max: LV V1 max P.5 cm/sec 115.0 cm/sec 178.4 cm/sec 2.8 mmHg MV A max noah: MV P1/2t: 50.9 msec Ao max PG: LV V1 max: 68.6 cm/sec 12.7 mmHg 82.9 cm/sec MV E/A: 1.6 MVA(P1/2t): 4.3 cm2 MV dec slope: 661.9 cm/sec2 PA V2 max: 69.6 cm/sec PA max P.9 mmHg Left Ventricle The left ventricle is borderline dilated. There is borderline concentric left ventricular hypertrophy. Left ventricular systolic function is moderately reduced. The Ejection Fraction estimate is 35-40%. Doppler measurements suggest pseudonormalized left ventricular relaxation, which is associated with grade II/IV or mild to moderate diastolic dysfunction. Regional wall motion abnormalities cannot be excluded due to limited visualization. Right Ventricle The right ventricle is grossly normal size. There is normal right ventricular wall thickness. The right ventricular systolic function is normal. Atria The right atrium is normal. The left atrium is mildly dilated. Interarterial septum not well visualized and not well dopplered. Cannot comment on ASD/PFO presence. Mitral Valve The mitral valve is grossly normal. There is no mitral valve stenosis. There is a trace amount of mitral regurgitation. Aortic Valve The aortic valve is not well visualized secondary to technical limitations. There is no aortic valve stenosis. There is a trace amount of aortic regurgitation. Tricuspid Valve The tricuspid valve is not well visualized, but is grossly normal. There is no tricuspid stenosis. There is a trace or physiologic amount of tricuspid regurgitation. Tricuspid regurgitation jet envelope not well defined to measure RV systolic pressure accurately. Pulmonic Valve The pulmonic valve is not well visualized. Great Vessels The aortic root is not well visualized but is probably normal size. The inferior vena cava appeared normal and decreased > 50% with respiration (RAP 5-10 mmHg). Effusions There is no pericardial effusion. : GEORGE RIOS > George Rios
[2017-08-08] MEDS: IPRATROPIUM BROMIDE 0.02% NEB 0.5 MG/2.5 ML AMPUL NEB SCH ×4 (01:29→19:41)
[2017-08-08] MEDS: LEVALBUTEROL HCL NEB 1.25 MG/3 ML AMPUL NEB SCH ×4 (01:29→19:41)
[2017-08-08 04:55] LABS: ANION GAP 13 (5-19); BLOOD UREA NITROGEN 24 mg/dL (7-20); CALCIUM 9.4 mg/dL (8.4-10.2); CARBON DIOXIDE 32 mmol/L (22-30); CHLORIDE 96 mmol/L (98-107); CHOLESTEROL 140.64 mg/dL (0-200); GLUCOSE 126 mg/dL (75-110); POTASSIUM 4.2 mmol/L (3.6-5.0); SODIUM 140.9 mmol/L (137-145); TRIGLYCERIDES 71 mg/dL (<150); VLDL CHOLESTEROL 14.2 mg/dL (10-31)
[2017-08-08 05:05] LABS: DIRECT LDL 69 mg/dL (<100)
[2017-08-08 06:40] LABS: ABSOLUTE EOSINOPHILS # (AUTO) 0.4 10^3/uL (0.0-0.6); ABSOLUTE LYMPHOCYTES (AUTO) 1.8 10^3/uL (0.5-4.7); ABSOLUTE MONOCYTES (AUTO) 0.7 10^3/uL (0.1-1.4); ABSOLUTE NEUT (AUTO) 8.1 10^3/uL (1.7-8.2); BASOPHILS % (AUTO) 0.3 % (0-2); EOSINOPHILS % (AUTO) 3.3 % (0-6); HEMATOCRIT 36.4 % (37.9-51.0); HEMOGLOBIN 12.6 g/dL (13.5-17.0); LYMPHOCYTES % (AUTO) 16.6 % (13-45); MEAN CORPUSCULAR HEMOGLOBIN 31.8 pg (27.0-33.4); MEAN CORPUSCULAR HGB CONC 34.5 g/dL (32.0-36.0); MEAN CORPUSCULAR VOLUME 92 fl (80-97); PLATELET COUNT 185 10^3/uL (150-450); RED BLOOD COUNT 3.96 10^6/uL (4.35-5.55); SEGMENTED NEUTROPHILS % (AUTO) 73.8 % (42-78); TOTAL CELLS COUNTED % (AUTO) 100 %
--- NOTE | 2017-08-08 07:26 | EKG REPORT ---
SEVERITY:- ABNORMAL ECG - SINUS RHYTHM NONSPECIFIC ST-T CHANGES-LATERAL LEADS : Confirmed by: Armando Barba MD 08-Aug-2017 07:26:05
[2017-08-08] MEDS: DOCUSATE SODIUM 100 MG CAPSULE PO SCH (07:51)
[2017-08-08] MEDS: ACETYLCYSTEINE 20% SOLN 800 MG/4 ML VIAL.NEB NEB SCH ×2 (08:29→19:41)
[2017-08-08] MEDS: GUAIFENESIN 600 MG TABLET.SA PO SCH ×2 (09:32→21:59)
[2017-08-08 09:35] LABS: PHOSPHORUS 3.4 mg/dL (2.5-4.5)
[2017-08-08] MEDS ORDERED: LISINOPRIL 10 MG TABLET PO SCH ×2 (10:00)
[2017-08-08] MEDS ORDERED: BENZONATATE 100 MG CAPSULE PO PRN (10:12)
[2017-08-08] MEDS: FLUTICASONE NASAL SPRAY 50 MCG/SPRY 120 SPRAY/16 GM NASL SCH ×2 (10:14→21:59)
[2017-08-08] MEDS: APIXABAN 5 MG TABLET PO SCH ×2 (10:14→18:15)
[2017-08-08] MEDS: TICAGRELOR 90 MG TABLET PO SCH ×2 (10:14→18:15)
[2017-08-08] MEDS: FUROSEMIDE INJ/PF 40 MG/4 ML SDV IV SCH (10:15)
[2017-08-08] MEDS: INSULIN LISPRO 100 UNIT/ML 3 ML VIAL SUBCUT PRN ×3 (11:54→22:23)
[2017-08-08] MEDS ORDERED: SACUBITRIL/VALSARTAN 24 MG/26 MG TABLET PO ONE (12:00)
[2017-08-08] MEDS: DEXTROSE 5%-WATER 500 ML with AMIODARONE HCL 900 MG IV PRN ×2 (13:10)
[2017-08-08] MEDS ORDERED: AMIODARONE HCL 200 MG TABLET PO ONE (18:15)
--- NOTE | 2017-08-08 18:25 | PDOC PROGRESS REPORT ---
Subjective Progress Note for:: 08/08/17 Subjective:: Any 7-year-old male with past medical history of Hypertension Hyperlipidemia Coronary artery disease status post stenting 6 Congestive heart failure The patient was admitted on August 07 with shortness of breath and was found to have A. fib with RVR. He was treated with IV Cardizem IV digoxin and IV Lopressor. He was diagnosed with acute bronchitis and treated with nebulizers and antibiotics. He is suspected to have underlying obstructive sleep apnea and possibly COPD. He was started on an amiodarone drip for episodes of nonsustained ventricular tachycardia and atrial fibrillation and was started also on Eliquis. Reason For Visit: AFIB, ACUTE BRONCHITIS, HEART FAILURE Physical Exam Vital Signs: Temp Pulse Resp BP Pulse Ox 98.5 F 68 20 109/57 L 97 08/08/17 18:00 08/08/17 18:00 08/08/17 18:00 08/08/17 18:00 08/08/17 18:00 Intake & Output 08/07/17 08/08/17 08/09/17 06:59 06:59 06:59 Intake Total 729 450 Output Total 1200 500 Balance -471 -50 Weight 97.6 kg 99.2 kg Results Laboratory Results: 08/08/17 04:05 08/08/17 04:05 08/08/17 08/08/17 08/08/17 04:05 04:05 04:05 WBC 11.0 H RBC 3.96 L Hgb 12.6 L Hct 36.4 L MCV 92 MCH 31.8 MCHC 34.5 RDW 14.0 Plt Count 185 Seg Neutrophils % 73.8 Lymphocytes % 16.6 Monocytes % 6.0 Eosinophils % 3.3 Basophils % 0.3 Absolute Neutrophils 8.1 Absolute Lymphocytes 1.8 Absolute Monocytes 0.7 Absolute Eosinophils 0.4 Absolute Basophils 0.0 Sodium 140.9 Potassium 4.2 Chloride 96 L Carbon Dioxide 32 H Anion Gap 13 BUN 24 H Creatinine 0.83 Est GFR ( Amer) > 60 Est GFR (Non-Af Amer) > 60 Glucose 126 H Calcium 9.4 Phosphorus 3.4 Magnesium 2.5 H Triglycerides 71 Cholesterol 140.64 LDL Cholesterol Direct 69 VLDL Cholesterol 14.2 HDL Cholesterol 52 08/07/17 08/07/17 08/07/17 07:10 07:10 12:16 Creatine Kinase 33 L 41 L CK-MB (CK-2) 0.62 Troponin I 0.017 NT-Pro-B Natriuret Pep 08/07/17 08/07/17 08/07/17 12:16 18:30 18:30 Creatine Kinase 44 L CK-MB (CK-2) 0.62 0.73 Troponin I 0.027 0.027 NT-Pro-B Natriuret Pep 08/08/17 04:05 Creatine Kinase CK-MB (CK-2) Troponin I NT-Pro-B Natriuret Pep 1790 H Impressions: Chest X-Ray 08/07/17 00:56 IMPRESSION: No acute cardiopulmonary findings. Assessment & Plan - Diagnosis (1) Atrial fibrillation with RVR Is this a current diagnosis for this admission?: Yes Plan: Amiodarone drip, Eliquis, Toprol-XL. Check echocardiogram. Keep mag more than 2, potassium more than 4. (2) Acute bronchitis Qualifiers: Bronchitis organism: unspecified organism Qualified Code(s): J20.9 - Acute bronchitis, unspecified Is this a current diagnosis for this admission?: Yes Plan: Nebs, antitussives (3) Hypomagnesemia Is this a current diagnosis for this admission?: Yes Plan: Replete and continue to monitor (4) Non-sustained ventricular tachycardia Is this a current diagnosis for this admission?: Yes - Time Time Spent with patient: 35 or more minutes
--- NOTE | 2017-08-08 20:34 | PDOC CONSULTATION ---
Consultation Consult Date: 08/07/17 Attending physician:: ALEXANDER DUNCAN Consult reason:: Ventricular tachycardia History of Present Illness Admission Date/PCP: 08/07/17 04:02 Patient complains of: Shortness of breath History of Present Illness: KALEN ROLON is a 77 year old male with history of hypertension, congestive heart failure, coronary artery disease status post stenting 6. Patient presents with 48 hours of rhinorrhea, cough and shortness of breath. In the emergency room is found to be in A. fib with RVR he receives IV Cardizem and referred to the hospitalist for admission. Patient remains in A. fib with RVR in the 140s requiring IV digoxin followed by IV Lopressor and admitted to IMCU. Patient denies previous episode, chest pain. He admits palpitations of the last 12 hours, no new medications admitting paroxysms of cough secondary to URI. Patient was seen on the floor. Recommended that patient be transferred to the unit as patient was noted to have frequent runs of wide-complex tachycardia which seems to be ventricular tachycardia. Patient also noted to be in atrial fibrillation. Recommended that patient be started on IV amiodarone bolus and drip protocol. Patient also to receive IV Lopressor. These orders were related to the nurse. Past Medical History Cardiac Medical History: Reports: Hyperlipidema, Hypertension Pulmonary Medical History: Reports: Bronchitis Endocrine Medical History: Reports: Diabetes Mellitus Type 1, Diabetes Mellitus Type 2 Musculoskeltal Medical History: Reports: Arthritis - right knee Past Surgical History Past Surgical History: Reports: Cardiac Catheterization - 6stents, Orthopedic Surgery - R knee Social History Information Source: Patient Lives with: Spouse/Significant other Smoking Status: Former Smoker Cigarettes Packs Per Day: 1 Frequency of Alcohol Use: Rare - Advance Directive Resuscitation Status: Full Code Surrogate healthcare decision maker:: Patient's is the surrogate decision-maker Family History Family History: CAD, COPD, Hypertension Parental Family History Reviewed: Yes Children Family History Reviewed: Yes Sibling(s) Family History Reviewed.: Yes Medication/Allergy Home Medications: Furosemide [Lasix] 40 mg PO DAILY 05/29/17 Lisinopril 5 mg PO DAILY 05/29/17 Metoprolol Succinate [Toprol XL 100 mg Tablet] 200 mg PO DAILY 05/29/17 Ticagrelor [Brilinta 90 mg Tablet] 90 mg PO Q12 05/29/17 Acetaminophen [Tylenol Extra Strength 500 mg Tablet] 500 mg PO Q8 08/07/17 Aspirin [Ecotrin 81 mg EC Tablet] 81 mg PO DAILY 08/07/17 Fluticasone Propionate [Flonase Nasal Pomerene 50 Mcg/Pomerene 16 gm] 1 spray NAREB DAILY 08/07/17 Glimepiride [Amaryl 4 mg Tablet] 4 mg PO BID 08/07/17 Hydrochlorothiazide [Hydrodiuril 12.5 mg Capsule] 12.5 mg PO DAILY 08/07/17 Metformin HCl [Metformin HCl ER] 750 mg PO BID 08/07/17 Simvastatin [Zocor 20 mg Tablet] 20 mg PO DAILY 08/07/17 Vit A/Vit C/Vit E/Zinc/Copper [Preservision Areds Softgel] 2 cap PO DAILY Allergies/Adverse Reactions: No Known Allergies Allergy (Unverified 06/24/16 17:16) Review of Systems Review of Systems: Please see history of present illness and past medical history as wall. Constitutional: No fever or chills reported. Head : No recent chronic headaches, recent head injury. Recent rhinorrhea, dry cough. Eyes: No recent eye pain, diplopia, redness, discharge, acute visual changes. Ears: No recent chronic ear pain, acute hearing loss, ear discharge. Oral cavity: No recent ulcerations, bleeding, oral cavity discomfort. Neck: No recent acute neck pain reported. Hematologic: No recent easy bruising or bleeding. Lymphatic: No recent lymph node enlargement reported. Cardiovascular system review: See history of present illness. Respiratory system review: No hemoptysis or blood clots in the lungs reported. Mild Shortness of breath on exertion Gastrointestinal system review: Negative for any recent acute hematemesis, melena. Genitourinary system review: No recent acute or chronic hematuria, flank pain, UTI etc. reported. Skin system review: Negative for any recent abnormal bruising, no rash, no pruritus reported. Neurologic: No prior history of strokes, mini strokes, seizure disorder. Psychologic: No history of major psychosis or major depression reported. Musculoskeletal: Minor aches and pains reported. No acute joint swelling reported. Endocrine: No recent polyuria, polydipsia, recent heat or cold intolerance. Physical Exam Vital Signs: Temp Pulse Resp BP Pulse Ox 98.6 F 71 24 H 111/59 L 95 08/07/17 19:29 08/07/17 20:00 08/07/17 20:00 08/07/17 19:44 08/07/17 20:00 Intake & Output 08/06/17 08/07/17 08/08/17 06:59 06:59 06:59 Intake Total 519 Output Total 850 Balance -331 Weight 97.6 kg Results Laboratory Results: 08/07/17 15:50 08/07/17 08/07/17 07:10 15:50 Sodium 140.7 Potassium 3.9 Chloride 96 L Carbon Dioxide 31 H Anion Gap 14 BUN 17 Creatinine 0.75 Est GFR ( Amer) > 60 Est GFR (Non-Af Amer) > 60 Glucose 177 H Calcium 9.6 Magnesium 1.4 L 2.6 H D Triglycerides 70 Cholesterol 133.52 LDL Cholesterol Direct 64 VLDL Cholesterol 14.0 HDL Cholesterol 54 08/07/17 08/07/17 08/07/17 07:10 07:10 12:16 Creatine Kinase 33 L 41 L CK-MB (CK-2) 0.62 Troponin I 0.017 08/07/17 08/07/17 08/07/17 12:16 18:30 18:30 Creatine Kinase 44 L CK-MB (CK-2) 0.62 0.73 Troponin I 0.027 0.027 EKG Comments: Initial EKG shows atrial fibrillation with rapid ventricular response. No acute ST-T wave changes noted. Telemetry strip shows frequent runs of wide- complex tachycardia felt to be ventricular tachycardia. Impressions: Chest X-Ray 08/07/17 00:56 IMPRESSION: No acute cardiopulmonary findings. Assessment & Plan - Diagnosis (1) Non-sustained ventricular tachycardia Is this a current diagnosis for this admission?: Yes (2) Coronary artery disease Qualifiers: Coronary Disease-Associated Artery/Lesion type: [place] artery [place] vs. transplanted heart: [place] heart Associated angina: angina presence unspecified Qualified Code(s): I25.10 - Atherosclerotic heart disease of [place] coronary artery without angina pectoris Is this a current diagnosis for this admission?: Yes (3) Atrial fibrillation with RVR Is this a current diagnosis for this admission?: Yes (4) Congestive heart failure Qualifiers: Heart failure type: combined systolic and diastolic Heart failure chronicity: acute on chronic Qualified Code(s): I50.43 - Acute on chronic combined systolic (congestive) and diastolic (congestive) heart failure Is this a current diagnosis for this admission?: Yes (5) Hypomagnesemia Is this a current diagnosis for this admission?: Yes (6) Acute bronchitis Qualifiers: Bronchitis organism: unspecified organism Qualified Code(s): J20.9 - Acute bronchitis, unspecified Is this a current diagnosis for this admission?: Yes - Notes Notes: Nonsustained ventricular tachycardia: Amiodarone drip protocol was started. Patient to also be restarted on his home beta blockers and IV beta-cristobal on a as needed basis. Orders were given to the nurse. Patient later on seen in the evening when he was noted to convert to sinus rhythm. Atrial fibrillation with rapid ventricular response: Patient was started on IV amiodarone drip and bolus protocol along with beta-cristobal and calcium channel blockers. Patient now in sinus rhythm. Patient was noted to convert to sinus rhythm in the evening. Coronary artery disease: Patient is status post stent placement in the past. Continue dual antiplatelet therapy. Continue statin therapy beta-cristobal therapy. Will recommend MELO inhibitor/angiotensin receptor cristobal/entresto therapy depending on the LVEF. Hypomagnesemia: Patient was noted to have low magnesium level at 1.4. It was expeditiously corrected. CHF: This is based on BNP level. Patient was noted to be short of breath. Possibly related to systolic and diastolic dysfunction. Echocardiogram obtained was technically difficult. Acute bronchitis: Stable. Obesity: Patient advised on chronic weight loss. Patient also informed that he might benefit from a sleep study. - Time Time Spent: 30 to 50 Minutes - CODE STATUS was discussed, patient remains full code. Surrogate decision-maker unchanged. Multiple medical problems were addressed. More than 50% of the time spent coordinating care, discussing management plans with involved caregivers. Management plans discussed with involved personnels. Medical decision making was of moderate to high complexity , patient's has multiple comorbidities. Medications reviewed and adjusted accordingly: Yes
--- NOTE | 2017-08-08 20:39 | PDOC PROGRESS REPORT ---
Subjective Progress Note for:: 08/08/17 Subjective:: Patient seems to be doing better. Pt is denying any chest arm or neck discomfort. Patient denying any PND, orthopnea. Patient denied any sustained palpitations, dizziness, syncope, near syncope. Patient denying any fever chills. Patient denying any other significant discomfort. Patient is maintaining sinus rhythm. Patient converted to sinus rhythm yesterday in the evening. Review of systems: Rest review of systems negative. Medications: Medications have been reviewed. Reason For Visit: AFIB, ACUTE BRONCHITIS, HEART FAILURE Physical Exam Vital Signs: Temp Pulse Resp BP Pulse Ox 97.9 F 74 19 121/53 L 100 08/08/17 19:26 08/08/17 20:00 08/08/17 20:00 08/08/17 19:45 08/08/17 20:00 Intake & Output 08/07/17 08/08/17 08/09/17 06:59 06:59 06:59 Intake Total 729 648 Output Total 1200 900 Balance -471 -252 Weight 97.6 kg 99.2 kg Exam: GENERAL: well-nourished and in no acute distress. Alert and oriented x3 HEAD: Atraumatic, normocephalic. EYES: Pupils equal round and reactive to light, extraocular movements intact, sclera anicteric, conjunctiva are normal. ENT: TMs normal, nares patent, oropharynx clear without exudates. Moist mucous membranes. No oral ulcerations or bleeding gums noted NECK: supple without lymphadenopathy. Trachea is central. No cervical or axillary lymphadenopathy noted. Carotids are 2+, JVD WNL LUNGS: Respiration seems nonlabored, no significant accessory muscle action noted. Breath sounds clear to auscultation bilaterally and equal noted. No wheezes rales or rhonchi noted. No significant dullness noted on percussion. CHEST: Palpation of the chest wall shows no significant chest wall tenderness. 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 ABDOMEN: Soft, no significant tenderness appreciated, normoactive bowel sounds. No guarding, no rebound. No rigidity noted . No masses appreciated. EXTREMITIES: Pedal pulses are 1-2+, no calf tenderness noted. No clubbing or cyanosis. negative pedal edema noted NEUROLOGICAL: Focused neurological exam showed no significant neurologic deficit. Normal speech, no focal weakness appreciated. PSYCH: Normal mood, normal affect. Judgment and insight within normal limits. SKIN: No significant ecchymosis, skin is noted to be warm. MUSCULOSKELETAL EXAM: No significant acute joint swelling noted. Results Laboratory Results: 08/08/17 04:05 08/08/17 04:05 08/08/17 08/08/17 08/08/17 04:05 04:05 04:05 WBC 11.0 H RBC 3.96 L Hgb 12.6 L Hct 36.4 L MCV 92 MCH 31.8 MCHC 34.5 RDW 14.0 Plt Count 185 Seg Neutrophils % 73.8 Lymphocytes % 16.6 Monocytes % 6.0 Eosinophils % 3.3 Basophils % 0.3 Absolute Neutrophils 8.1 Absolute Lymphocytes 1.8 Absolute Monocytes 0.7 Absolute Eosinophils 0.4 Absolute Basophils 0.0 Sodium 140.9 Potassium 4.2 Chloride 96 L Carbon Dioxide 32 H Anion Gap 13 BUN 24 H Creatinine 0.83 Est GFR ( Amer) > 60 Est GFR (Non-Af Amer) > 60 Glucose 126 H Calcium 9.4 Phosphorus 3.4 Magnesium 2.5 H Triglycerides 71 Cholesterol 140.64 LDL Cholesterol Direct 69 VLDL Cholesterol 14.2 HDL Cholesterol 52 08/07/17 08/07/17 08/07/17 07:10 07:10 12:16 Creatine Kinase 33 L 41 L CK-MB (CK-2) 0.62 Troponin I 0.017 NT-Pro-B Natriuret Pep 08/07/17 08/07/17 08/07/17 12:16 18:30 18:30 Creatine Kinase 44 L CK-MB (CK-2) 0.62 0.73 Troponin I 0.027 0.027 NT-Pro-B Natriuret Pep 08/08/17 04:05 Creatine Kinase CK-MB (CK-2) Troponin I NT-Pro-B Natriuret Pep 1790 H EKG Comments: Telemetry strips shows sinus rhythm. QTC WNL. 2D echo results were reviewed. Impressions: Chest X-Ray 08/07/17 00:56 IMPRESSION: No acute cardiopulmonary findings. Assessment & Plan - Diagnosis (1) Non-sustained ventricular tachycardia Is this a current diagnosis for this admission?: Yes (2) Coronary artery disease Qualifiers: Coronary Disease-Associated Artery/Lesion type: [place] artery [place] vs. transplanted heart: [place] heart Associated angina: angina presence unspecified Qualified Code(s): I25.10 - Atherosclerotic heart disease of [place] coronary artery without angina pectoris Is this a current diagnosis for this admission?: Yes (3) Atrial fibrillation with RVR Is this a current diagnosis for this admission?: Yes (4) Congestive heart failure Qualifiers: Heart failure type: combined systolic and diastolic Heart failure chronicity: acute on chronic Qualified Code(s): I50.43 - Acute on chronic combined systolic (congestive) and diastolic (congestive) heart failure Is this a current diagnosis for this admission?: Yes (5) Hypomagnesemia Is this a current diagnosis for this admission?: Yes (6) Acute bronchitis Qualifiers: Bronchitis organism: unspecified organism Qualified Code(s): J20.9 - Acute bronchitis, unspecified Is this a current diagnosis for this admission?: Yes - Notes Notes: Nonsustained ventricular tachycardia: Converted to sinus rhythm. No further recurrence of atrial fibrillation. Start amiodarone 400 mg p.o. twice daily with meals once drip stops. Continue beta-cristobal therapy. Atrial fibrillation with rapid ventricular response: Continue metoprolol succinate. Dose reduced to little bit due to concern about hypotension. Continue chronic anticoagulation with Eliquis. Patient would probably just need to continue Brilinta, will stop aspirin if patient is on it. Coronary artery disease: Patient is status post stent placement in the past. Stable. Continue statin therapy beta-cristobal therapy. Will recommend MELO inhibitor/angiotensin receptor cristobal/entresto therapy depending on the LVEF. Hypomagnesemia: This has been corrected. CHF: This is based on BNP level. Patient was noted to be short of breath. Possibly related to systolic and diastolic dysfunction. Echocardiogram obtained was technically difficult. It shows systolic and diastolic dysfunction. Have started patient on entresto therapy. To be further escalated as an outpatient. Acute bronchitis: Stable. Obesity: Patient advised on chronic weight loss. Patient also informed that he might benefit from a sleep study. - Time Time with patient: Greater than 35 minutes - CODE STATUS was discussed, patient remains full code. Surrogate decision-maker unchanged. Multiple medical problems were addressed. More than 50% of the time spent coordinating care, discussing management plans with involved caregivers. Management plans discussed with involved personnels. Medical decision making was of moderate to high complexity, patient's has multiple comorbidities. Medications reviewed and adjusted accordingly: Yes
[2017-08-08] MEDS: METOPROLOL SUCCINATE 50 MG TAB.SR.24H PO SCH (21:58)
[2017-08-08] MEDS: SACUBITRIL/VALSARTAN 24 MG/26 MG TABLET PO SCH (21:59)
[2017-08-08] MEDS ORDERED: AMIODARONE HCL 200 MG TABLET PO SCH (22:00)
[2017-08-09] MEDS: IPRATROPIUM BROMIDE 0.02% NEB 0.5 MG/2.5 ML AMPUL NEB SCH ×4 (01:40→20:08)
[2017-08-09] MEDS: LEVALBUTEROL HCL NEB 1.25 MG/3 ML AMPUL NEB SCH ×4 (01:40→20:08)
[2017-08-09 04:02] LABS: HEMATOCRIT 35.4 % (37.9-51.0); HEMOGLOBIN 12.1 g/dL (13.5-17.0); MEAN CORPUSCULAR HEMOGLOBIN 31.4 pg (27.0-33.4); MEAN CORPUSCULAR HGB CONC 34.2 g/dL (32.0-36.0); MEAN CORPUSCULAR VOLUME 92 fl (80-97); PLATELET COUNT 196 10^3/uL (150-450); RED BLOOD COUNT 3.86 10^6/uL (4.35-5.55); RED CELL DISTRIBUTION WIDTH 13.9 % (11.5-14.0); WHITE BLOOD COUNT 9.1 10^3/uL (4.0-10.5)
[2017-08-09] MEDS: AMIODARONE HCL 200 MG TABLET PO SCH ×2 (05:49→18:32)
[2017-08-09] MEDS: ACETYLCYSTEINE 20% SOLN 800 MG/4 ML VIAL.NEB NEB SCH (08:52)
[2017-08-09 09:32] LABS: ANION GAP 9 (5-19); BLOOD UREA NITROGEN 26 mg/dL (7-20); CALCIUM 9.7 mg/dL (8.4-10.2); CARBON DIOXIDE 33 mmol/L (22-30); CHLORIDE 98 mmol/L (98-107); GLUCOSE 142 mg/dL (75-110); PHOSPHORUS 3.4 mg/dL (2.5-4.5); POTASSIUM 3.6 mmol/L (3.6-5.0); SODIUM 139.8 mmol/L (137-145)
[2017-08-09] MEDS: METOPROLOL SUCCINATE 50 MG TAB.SR.24H PO SCH (10:35)
[2017-08-09] MEDS: GUAIFENESIN 600 MG TABLET.SA PO SCH ×2 (10:35→21:40)
[2017-08-09] MEDS: POTASSIUM CHLORIDE 10 MEQ TABLET.SA PO SCH (10:35)
[2017-08-09] MEDS: DOCUSATE SODIUM 100 MG CAPSULE PO SCH (10:35)
[2017-08-09] MEDS: APIXABAN 5 MG TABLET PO SCH ×2 (10:35→18:32)
[2017-08-09] MEDS: TICAGRELOR 90 MG TABLET PO SCH ×2 (10:36→18:32)
[2017-08-09] MEDS: FUROSEMIDE INJ/PF 40 MG/4 ML SDV IV SCH (10:36)
[2017-08-09] MEDS: SACUBITRIL/VALSARTAN 24 MG/26 MG TABLET PO SCH ×2 (10:36→21:40)
[2017-08-09] MEDS: FLUTICASONE NASAL SPRAY 50 MCG/SPRY 120 SPRAY/16 GM NASL SCH ×2 (10:37→21:40)
--- NOTE | 2017-08-09 10:37 | PDOC PROGRESS REPORT ---
Subjective Progress Note for:: 08/09/17 Subjective:: Patient's previous cardiac evaluations were reviewed. Patient claims that he has total of 6 stents in his heart but in the last year at [facility]. He claims that at that time he just did not feel good and his color was not good. However on more questioning, he admitted that he had some chest tightness at that time and he was taken directly to the Program Developer. On reviewing his symptoms this time, he did complain of some chest tightness but much milder day before yesterday when he was noted to be in fast heart rhythm. Patient seems to be doing better. Pt is denying any chest arm or neck discomfort. Patient denying any PND, orthopnea. Patient denied any sustained palpitations, dizziness, syncope, near syncope. Patient denying any fever chills. Patient denying any other significant discomfort. Patient is maintaining sinus rhythm. Review of systems: Rest review of systems negative. Medications: Medications have been reviewed. Reason For Visit: AFIB, ACUTE BRONCHITIS, HEART FAILURE Physical Exam Vital Signs: Temp Pulse Resp BP Pulse Ox 98.6 F 75 14 109/57 L 98 08/09/17 03:37 08/09/17 08:50 08/09/17 08:50 08/09/17 03:44 08/09/17 08:50 Intake & Output 08/08/17 08/09/17 08/10/17 06:59 06:59 06:59 Intake Total 729 798 Output Total 1200 1600 Balance -471 -802 Weight 99.2 kg 100.6 kg Exam: GENERAL: well-nourished and in no acute distress. Alert and oriented x3 HEAD: Atraumatic, normocephalic. EYES: Pupils equal round and reactive to light, extraocular movements intact, sclera anicteric, conjunctiva are normal. ENT: TMs normal, nares patent, oropharynx clear without exudates. Moist mucous membranes. No oral ulcerations or bleeding gums noted NECK: supple without lymphadenopathy. Trachea is central. No cervical or axillary lymphadenopathy noted. Carotids are 2+, JVD WNL LUNGS: Respiration seems nonlabored, no significant accessory muscle action noted. Breath sounds clear to auscultation bilaterally and equal noted. No wheezes rales or rhonchi noted. No significant dullness noted on percussion. CHEST: Palpation of the chest wall shows no significant chest wall tenderness. 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 ABDOMEN: Soft, no significant tenderness appreciated, normoactive bowel sounds. No guarding, no rebound. No rigidity noted . No masses appreciated. EXTREMITIES: Pedal pulses are 1-2+, no calf tenderness noted. No clubbing or cyanosis. negative pedal edema noted NEUROLOGICAL: Focused neurological exam showed no significant neurologic deficit. Normal speech, no focal weakness appreciated. PSYCH: Normal mood, normal affect. Judgment and insight within normal limits. SKIN: No significant ecchymosis, skin is noted to be warm. MUSCULOSKELETAL EXAM: No significant acute joint swelling noted. Results Laboratory Results: 08/09/17 03:49 08/09/17 03:49 08/09/17 08/09/17 03:49 03:49 WBC 9.1 RBC 3.86 L Hgb 12.1 L Hct 35.4 L MCV 92 MCH 31.4 MCHC 34.2 RDW 13.9 Plt Count 196 Sodium 139.8 Potassium 3.6 Chloride 98 Carbon Dioxide 33 H Anion Gap 9 BUN 26 H Creatinine 0.84 Est GFR ( Amer) > 60 Est GFR (Non-Af Amer) > 60 Glucose 142 H Calcium 9.7 Phosphorus 3.4 Magnesium 2.3 08/07/17 08/07/17 08/07/17 07:10 07:10 12:16 Creatine Kinase 33 L 41 L CK-MB (CK-2) 0.62 Troponin I 0.017 NT-Pro-B Natriuret Pep 08/07/17 08/07/17 08/07/17 12:16 18:30 18:30 Creatine Kinase 44 L CK-MB (CK-2) 0.62 0.73 Troponin I 0.027 0.027 NT-Pro-B Natriuret Pep 08/08/17 04:05 Creatine Kinase CK-MB (CK-2) Troponin I NT-Pro-B Natriuret Pep 1790 H EKG Comments: Telemetry shows sinus rhythm without any sustained tachycardia or bradycardia. Impressions: Chest X-Ray 08/07/17 00:56 IMPRESSION: No acute cardiopulmonary findings. Assessment & Plan - Diagnosis (1) Chest discomfort Is this a current diagnosis for this admission?: Yes (2) Non-sustained ventricular tachycardia Is this a current diagnosis for this admission?: Yes (3) Coronary artery disease Qualifiers: Coronary Disease-Associated Artery/Lesion type: [place] artery [place] vs. transplanted heart: [place] heart Associated angina: angina presence unspecified Qualified Code(s): I25.10 - Atherosclerotic heart disease of [place] coronary artery without angina pectoris Is this a current diagnosis for this admission?: Yes (4) Atrial fibrillation with RVR Is this a current diagnosis for this admission?: Yes (5) Congestive heart failure Qualifiers: Heart failure type: combined systolic and diastolic Heart failure chronicity: acute on chronic Qualified Code(s): I50.43 - Acute on chronic combined systolic (congestive) and diastolic (congestive) heart failure Is this a current diagnosis for this admission?: Yes (6) Hypomagnesemia Is this a current diagnosis for this admission?: Yes (7) Acute bronchitis Qualifiers: Bronchitis organism: unspecified organism Qualified Code(s): J20.9 - Acute bronchitis, unspecified Is this a current diagnosis for this admission?: Yes - Notes Notes: Patient did admit to having some chest discomfort the day before yesterday when he was noted to be in rapid heart rhythm. There has been no recurrence of chest pain. However due to known CAD, will schedule patient for a nuclear stress test. Patient claims knee problem therefore he will be scheduled for a pharmacologic nuclear stress test. Nonsustained ventricular tachycardia: Converted to sinus rhythm. No further recurrence of atrial fibrillation. Continue amiodarone 400 mg p.o. twice daily with meals. Switch to 200 p.o. twice daily on discharge. Continue beta- cristobal therapy. Will recommend a event monitor as an outpatient that can be obtained through my office. Side effects discussed. Atrial fibrillation with rapid ventricular response: Continue metoprolol succinate. Dose reduced to little bit due to concern about hypotension. Continue chronic anticoagulation with Eliquis. Patient would probably just need to continue Brilinta, will stop aspirin if patient is on it. Coronary artery disease: Patient is status post stent placement in the past. Stable. Continue statin therapy beta-cristobal therapy. Will recommend MELO inhibitor/angiotensin receptor cristobal/entresto therapy depending on the LVEF. Hypomagnesemia: This has been corrected. CHF: This is based on BNP level. Patient was noted to be short of breath. Possibly related to systolic and diastolic dysfunction. Echocardiogram obtained was technically difficult. It shows systolic and diastolic dysfunction. Have started patient on entresto therapy. To be further escalated as an outpatient. Acute bronchitis: Stable. Obesity: Patient advised on chronic weight loss. Patient also informed that he might benefit from a sleep study. - Time Time with patient: Greater than 35 minutes - CODE STATUS was discussed, patient remains full code. Surrogate decision-maker unchanged. Multiple medical problems were addressed. More than 50% of the time spent coordinating care, discussing management plans with involved caregivers. Management plans discussed with involved personnels. Medical decision making was of high complexity, patient's has multiple comorbidities. Medications reviewed and adjusted accordingly: Yes
[2017-08-09] MEDS: INSULIN LISPRO 100 UNIT/ML 3 ML VIAL SUBCUT PRN ×2 (11:09→16:54)
[2017-08-09] MEDS ORDERED: POTASSIUM CHLORIDE 10 MEQ TABLET.SA PO ONE (12:05)
--- NOTE | 2017-08-09 12:28 | PDOC PROGRESS REPORT ---
Subjective Progress Note for:: 08/09/17 Subjective:: 77-year-old male with past medical history of Hypertension Hyperlipidemia Coronary artery disease status post stenting 6 Congestive heart failure The patient was admitted on August 07 with shortness of breath and was found to have A. fib with RVR. He was treated with IV Cardizem IV digoxin and IV Lopressor. He was diagnosed with acute bronchitis and treated with nebulizers and antibiotics. He is suspected to have underlying obstructive sleep apnea and possibly COPD. Now in NSR on PO Amiodarone and Eliquis. Plan for stress test in AM. No complaints Reason For Visit: AFIB, ACUTE BRONCHITIS, HEART FAILURE Physical Exam Vital Signs: Temp Pulse Resp BP Pulse Ox 98.6 F 75 14 109/57 L 98 08/09/17 03:37 08/09/17 08:50 08/09/17 08:50 08/09/17 03:44 08/09/17 08:50 Intake & Output 08/08/17 08/09/17 08/10/17 06:59 06:59 06:59 Intake Total 729 798 Output Total 1200 1600 Balance -471 -802 Weight 99.2 kg 100.6 kg 100.6 kg General appearance: PRESENT: no acute distress Head exam: PRESENT: normocephalic Mouth exam: PRESENT: moist Neck exam: ABSENT: tracheal deviation Respiratory exam: PRESENT: clear to auscultation o[place], symmetrical, unlabored Cardiovascular exam: PRESENT: RRR GI/Abdominal exam: PRESENT: normal bowel sounds, soft. ABSENT: tenderness Rectal exam: PRESENT: deferred Extremities exam: ABSENT: pedal edema Neurological exam: PRESENT: alert, awake, oriented to person, oriented to place , oriented to time, oriented to situation Psychiatric exam: PRESENT: appropriate affect Results Laboratory Results: 08/09/17 03:49 08/09/17 03:49 08/09/17 08/09/17 03:49 03:49 WBC 9.1 RBC 3.86 L Hgb 12.1 L Hct 35.4 L MCV 92 MCH 31.4 MCHC 34.2 RDW 13.9 Plt Count 196 Sodium 139.8 Potassium 3.6 Chloride 98 Carbon Dioxide 33 H Anion Gap 9 BUN 26 H Creatinine 0.84 Est GFR ( Amer) > 60 Est GFR (Non-Af Amer) > 60 Glucose 142 H Calcium 9.7 Phosphorus 3.4 Magnesium 2.3 08/07/17 08/07/17 08/07/17 07:10 07:10 12:16 Creatine Kinase 33 L 41 L CK-MB (CK-2) 0.62 Troponin I 0.017 NT-Pro-B Natriuret Pep 08/07/17 08/07/17 08/07/17 12:16 18:30 18:30 Creatine Kinase 44 L CK-MB (CK-2) 0.62 0.73 Troponin I 0.027 0.027 NT-Pro-B Natriuret Pep 08/08/17 04:05 Creatine Kinase CK-MB (CK-2) Troponin I NT-Pro-B Natriuret Pep 1790 H Impressions: Chest X-Ray 08/07/17 00:56 IMPRESSION: No acute cardiopulmonary findings. Assessment & Plan - Diagnosis (1) Atrial fibrillation with RVR Is this a current diagnosis for this admission?: Yes Plan: Continue Amiodarone, Eliquis, Toprol-XL. Echocardiogram showed left ventricular ejection fraction of 35-40% with mild to moderate diastolic dysfunction. No significant valvular abnormalities Keep mag more than 2, potassium more than 4. (2) Acute bronchitis Qualifiers: Bronchitis organism: unspecified organism Qualified Code(s): J20.9 - Acute bronchitis, unspecified Is this a current diagnosis for this admission?: Yes Plan: resolved. Continue nebs, antitussives as needed (3) Hypomagnesemia Is this a current diagnosis for this admission?: Yes Plan: Replete and continue to monitor (4) Non-sustained ventricular tachycardia Is this a current diagnosis for this admission?: Yes Plan: Resolved. (5) Diabetes Qualifiers: Diabetes mellitus type: type 2 Is this a current diagnosis for this admission?: Yes Plan: Diabetic diet and insulin sliding scale oral hypoglycemic agents on hold. (6) Coronary artery disease Qualifiers: Coronary Disease-Associated Artery/Lesion type: [place] artery [place] vs. transplanted heart: [place] heart Associated angina: angina presence unspecified Qualified Code(s): I25.10 - Atherosclerotic heart disease of [place] coronary artery without angina pectoris Is this a current diagnosis for this admission?: Yes Plan: Continue outpatient medications. Hold aspirin since he is now on Eliquis. Continue Brilinta. - Time Time Spent with patient: 35 or more minutes
[2017-08-10] MEDS: IPRATROPIUM BROMIDE 0.02% NEB 0.5 MG/2.5 ML AMPUL NEB SCH ×4 (01:10→20:28)
[2017-08-10] MEDS: LEVALBUTEROL HCL NEB 1.25 MG/3 ML AMPUL NEB SCH ×4 (01:10→20:28)
[2017-08-10] MEDS: METOPROLOL TARTRATE PF/INJ 5 MG/5 ML SDV IV PRN ×2 (01:57→02:21)
[2017-08-10 02:40] LABS: HEMATOCRIT 35.3 % (37.9-51.0); HEMOGLOBIN 12.1 g/dL (13.5-17.0); MEAN CORPUSCULAR HEMOGLOBIN 31.7 pg (27.0-33.4); MEAN CORPUSCULAR HGB CONC 34.4 g/dL (32.0-36.0); MEAN CORPUSCULAR VOLUME 92 fl (80-97); PLATELET COUNT 211 10^3/uL (150-450); RED BLOOD COUNT 3.83 10^6/uL (4.35-5.55); RED CELL DISTRIBUTION WIDTH 13.6 % (11.5-14.0); WHITE BLOOD COUNT 8.3 10^3/uL (4.0-10.5)
[2017-08-10] MEDS ORDERED: METOPROLOL TARTRATE PF/INJ 5 MG/5 ML SDV IV ONE (02:45)
[2017-08-10] MEDS ORDERED: NORMAL SALINE 500 ML IV ONE (02:45)
[2017-08-10 02:54] LABS: ANION GAP 12 (5-19); BLOOD UREA NITROGEN 27 mg/dL (7-20); CALCIUM 9.6 mg/dL (8.4-10.2); CARBON DIOXIDE 28 mmol/L (22-30); CHLORIDE 101 mmol/L (98-107); CREATINE KINASE 34 U/L (55-170); GLUCOSE 191 mg/dL (75-110); PHOSPHORUS 3.4 mg/dL (2.5-4.5); POTASSIUM 3.5 mmol/L (3.6-5.0); SODIUM 140.8 mmol/L (137-145)
[2017-08-10 03:07] LABS: TROPONIN I < 0.012 ng/mL
[2017-08-10] MEDS: AMIODARONE HCL 200 MG TABLET PO SCH ×2 (05:00→17:04)
[2017-08-10] MEDS: INSULIN LISPRO 100 UNIT/ML 3 ML VIAL SUBCUT PRN ×3 (08:22→17:03)
--- NOTE | 2017-08-10 08:41 | EKG REPORT ---
SEVERITY:- ABNORMAL ECG - ATRIAL FIBRILLATION VENTRICULAR TACHYCARDIA PROBABLE LVH WITH SECONDARY REPOL ABNRM ST DEPRESSION, PROBABLY RATE RELATED : Confirmed by: Armando Barba MD 10-Aug-2017 08:40:36
[2017-08-10 09:26] LABS: CREATINE KINASE MB 0.77 ng/mL (<4.55)
[2017-08-10 09:31] LABS: TROPONIN I < 0.012 ng/mL
[2017-08-10] MEDS ORDERED: FLUTICASONE NASAL SPRAY 50 MCG/SPRY 120 SPRAY/16 GM NAREB SCH (10:00)
[2017-08-10] MEDS ORDERED: METOPROLOL SUCCINATE 50 MG TAB.SR.24H PO SCH (10:00)
[2017-08-10] MEDS ORDERED: SIMVASTATIN 10 MG TABLET PO SCH (10:00)
[2017-08-10] MEDS ORDERED: FUROSEMIDE 20 MG TABLET PO SCH (10:00)
[2017-08-10] MEDS: GUAIFENESIN 600 MG TABLET.SA PO SCH ×2 (10:29→21:20)
[2017-08-10] MEDS: RANOLAZINE 500 MG TAB.SR.12H PO SCH ×2 (10:29→17:04)
[2017-08-10] MEDS: TICAGRELOR 90 MG TABLET PO SCH ×2 (10:29→17:04)
[2017-08-10] MEDS: APIXABAN 5 MG TABLET PO SCH ×2 (10:29→17:04)
[2017-08-10] MEDS: POTASSIUM CHLORIDE 10 MEQ TABLET.SA PO SCH ×4 (10:30→17:05)
[2017-08-10] MEDS: METOPROLOL SUCCINATE 50 MG TAB.SR.24H PO SCH ×2 (10:31→21:21)
[2017-08-10] MEDS: FLUTICASONE NASAL SPRAY 50 MCG/SPRY 120 SPRAY/16 GM NASL SCH ×2 (10:32→21:21)
[2017-08-10] MEDS: DOCUSATE SODIUM 100 MG CAPSULE PO SCH (10:32)
[2017-08-10] MEDS: SACUBITRIL/VALSARTAN 24 MG/26 MG TABLET PO SCH ×2 (10:33→21:20)
--- NOTE | 2017-08-10 15:33 | PDOC PROGRESS REPORT ---
Subjective Progress Note for:: 08/10/17 Subjective:: 77-year-old male with past medical history of Hypertension Hyperlipidemia Coronary artery disease status post stenting 6 Congestive heart failure The patient was admitted on August 07 with shortness of breath and was found to have A. fib with RVR. He was treated with IV Cardizem IV digoxin and IV Lopressor. He was diagnosed with acute bronchitis and treated with nebulizers and antibiotics. He is suspected to have underlying obstructive sleep apnea and possibly COPD. Had an episode of Afib with ventricular rate in the 160s requiring IV metoprolol 5mg x2. Also received an IV fluid bolus. Stress test postponed for 08/11/17. No complaints at present. Reason For Visit: AFIB, ACUTE BRONCHITIS, HEART FAILURE Physical Exam Vital Signs: Temp Pulse Resp BP Pulse Ox 98.5 F 68 14 125/69 97 08/10/17 08:00 08/10/17 13:29 08/10/17 13:29 08/10/17 11:19 08/10/17 13:29 Intake & Output 08/09/17 08/10/17 08/11/17 06:59 06:59 06:59 Intake Total 798 1720 350 Output Total 1600 1225 400 Balance -802 495 -50 Weight 100.6 kg 100.6 kg General appearance: PRESENT: no acute distress Head exam: PRESENT: normocephalic Eye exam: PRESENT: PERRLA Ear exam: PRESENT: normal external ear exam Mouth exam: PRESENT: moist Neck exam: ABSENT: tracheal deviation Respiratory exam: PRESENT: clear to auscultation oksana, symmetrical, unlabored Cardiovascular exam: PRESENT: RRR GI/Abdominal exam: PRESENT: normal bowel sounds, soft. ABSENT: tenderness Rectal exam: PRESENT: deferred Extremities exam: ABSENT: pedal edema Musculoskeletal exam: PRESENT: normal inspection Neurological exam: PRESENT: alert, awake, oriented to person, oriented to place , oriented to time, oriented to situation Psychiatric exam: PRESENT: appropriate affect Skin exam: ABSENT: rash Results Laboratory Results: 08/10/17 02:27 08/10/17 02:27 08/10/17 08/10/17 08/10/17 02:27 02:27 02:27 WBC 8.3 RBC 3.83 L Hgb 12.1 L Hct 35.3 L MCV 92 MCH 31.7 MCHC 34.4 RDW 13.6 Plt Count 211 Sodium Cancelled 140.8 Potassium Cancelled 3.5 L Chloride Cancelled 101 Carbon Dioxide Cancelled 28 Anion Gap Cancelled 12 BUN Cancelled 27 H Creatinine Cancelled 0.75 Est GFR ( Amer) Cancelled > 60 Est GFR (Non-Af Amer) Cancelled > 60 Glucose Cancelled 191 H Calcium Cancelled 9.6 Phosphorus 3.4 Magnesium 2.1 08/07/17 08/07/17 08/07/17 07:10 07:10 12:16 Creatine Kinase 33 L 41 L CK-MB (CK-2) 0.62 Troponin I 0.017 NT-Pro-B Natriuret Pep 08/07/17 08/07/17 08/07/17 12:16 18:30 18:30 Creatine Kinase 44 L CK-MB (CK-2) 0.62 0.73 Troponin I 0.027 0.027 NT-Pro-B Natriuret Pep 08/08/17 08/10/17 08/10/17 04:05 02:27 02:27 Creatine Kinase 34 L CK-MB (CK-2) 0.70 Troponin I < 0.012 NT-Pro-B Natriuret Pep 1790 H 08/10/17 08/10/17 08/10/17 08:30 08:30 08:30 Creatine Kinase 35 L CK-MB (CK-2) 0.77 Troponin I < 0.012 NT-Pro-B Natriuret Pep 591 H Impressions: Chest X-Ray 08/07/17 00:56 IMPRESSION: No acute cardiopulmonary findings. Assessment & Plan - Diagnosis (1) Atrial fibrillation with RVR Is this a current diagnosis for this admission?: Yes Plan: Continue Amiodarone, Eliquis, Toprol-XL. Echocardiogram showed left ventricular ejection fraction of 35-40% with mild to moderate diastolic dysfunction. No significant valvular abnormalities Keep mag more than 2, potassium more than 4. (2) Acute bronchitis Qualifiers: Bronchitis organism: unspecified organism Qualified Code(s): J20.9 - Acute bronchitis, unspecified Is this a current diagnosis for this admission?: Yes Plan: Resolved. Continue nebs, antitussives as needed (3) Hypomagnesemia Is this a current diagnosis for this admission?: Yes Plan: Replete and continue to monitor (4) Non-sustained ventricular tachycardia Is this a current diagnosis for this admission?: Yes Plan: Resolved. (5) Diabetes Qualifiers: Diabetes mellitus type: type 2 Is this a current diagnosis for this admission?: Yes Plan: Diabetic diet and insulin sliding scale oral hypoglycemic agents on hold. (6) Coronary artery disease Qualifiers: Coronary Disease-Associated Artery/Lesion type: [place] artery [place] vs. transplanted heart: [place] heart Associated angina: angina presence unspecified Qualified Code(s): I25.10 - Atherosclerotic heart disease of [place] coronary artery without angina pectoris Is this a current diagnosis for this admission?: Yes Plan: Continue outpatient medications. Hold aspirin since he is now on Eliquis. Continue Brilinta. - Time Time Spent with patient: 25-34 minutes
--- NOTE | 2017-08-10 17:35 | PDOC PROGRESS REPORT ---
Subjective Progress Note for:: 08/10/17 Subjective:: Patient claims that early this morning he woke up because of palpitations and had to sit up by the side of the bed. He was noted to be in atrial fibrillation with rapid ventricular response. Although short runs of wide- complex tachycardia was also noted. These are felt to be mostly aberrancies. Speedy phenomenon noted on some of the strips. Patient claims that he did not have any chest pain or significantly short of breath. Hospitalist notes suggest that he got IV Lopressor and also IV fluid bolus during the episode. Currently seems to be doing better. Pt is denying any chest arm or neck discomfort. Patient denying any PND, orthopnea. Patient denied any sustained palpitations, dizziness, syncope, near syncope. Patient denying any fever chills. Patient denying any other significant discomfort. Patient is maintaining sinus rhythm. Review of systems: Rest review of systems negative. Medications: Medications have been reviewed. Reason For Visit: AFIB, ACUTE BRONCHITIS, HEART FAILURE Physical Exam Vital Signs: Temp Pulse Resp BP Pulse Ox 98.2 F 68 18 112/56 L 97 08/10/17 16:00 08/10/17 13:29 08/10/17 16:00 08/10/17 15:18 08/10/17 13:29 Intake & Output 08/09/17 08/10/17 08/11/17 06:59 06:59 06:59 Intake Total 798 1720 350 Output Total 1600 1225 400 Balance -802 495 -50 Weight 100.6 kg 100.6 kg Exam: GENERAL: well-nourished and in no acute distress. Alert and oriented x3 HEAD: Atraumatic, normocephalic. EYES: Pupils equal round and reactive to light, extraocular movements intact, sclera anicteric, conjunctiva are normal. ENT: TMs normal, nares patent, oropharynx clear without exudates. Moist mucous membranes. No oral ulcerations or bleeding gums noted NECK: supple without lymphadenopathy. Trachea is central. No cervical or axillary lymphadenopathy noted. Carotids are 2+, JVD WNL LUNGS: Respiration seems nonlabored, no significant accessory muscle action noted. Few bibasilar coarse crackles are noted. No wheezes rales or rhonchi noted. No significant dullness noted on percussion. CHEST: Palpation of the chest wall shows no significant chest wall tenderness. HEART: [place] DIETITIAN [employer]ERAPE[employer]IC, No PSH, 1/6 TENA aortic area, 1/6 mosley systolic murmur mitral area, no rubs, no gallops. ABDOMEN: Soft, no significant tenderness appreciated, normoactive bowel sounds. No guarding, no rebound. No rigidity noted . No masses appreciated. EXTREMITIES: Pedal pulses are 1-2+, no calf tenderness noted. No clubbing or cyanosis. negative pedal edema noted NEUROLOGICAL: Focused neurological exam showed no significant neurologic deficit. Normal speech, no focal weakness appreciated. PSYCH: Normal mood, normal affect. Judgment and insight within normal limits. SKIN: No significant ecchymosis, skin is noted to be warm. MUSCULOSKELETAL EXAM: No significant acute joint swelling noted. Results Laboratory Results: 08/10/17 02:27 08/10/17 02:27 08/10/17 08/10/17 08/10/17 02:27 02:27 02:27 WBC 8.3 RBC 3.83 L Hgb 12.1 L Hct 35.3 L MCV 92 MCH 31.7 MCHC 34.4 RDW 13.6 Plt Count 211 Sodium Cancelled 140.8 Potassium Cancelled 3.5 L Chloride Cancelled 101 Carbon Dioxide Cancelled 28 Anion Gap Cancelled 12 BUN Cancelled 27 H Creatinine Cancelled 0.75 Est GFR ( Amer) Cancelled > 60 Est GFR (Non-Af Amer) Cancelled > 60 Glucose Cancelled 191 H Calcium Cancelled 9.6 Phosphorus 3.4 Magnesium 2.1 08/07/17 08/07/17 08/07/17 07:10 07:10 12:16 Creatine Kinase 33 L 41 L CK-MB (CK-2) 0.62 Troponin I 0.017 NT-Pro-B Natriuret Pep 08/07/17 08/07/17 08/07/17 12:16 18:30 18:30 Creatine Kinase 44 L CK-MB (CK-2) 0.62 0.73 Troponin I 0.027 0.027 NT-Pro-B Natriuret Pep 08/08/17 08/10/17 08/10/17 04:05 02:27 02:27 Creatine Kinase 34 L CK-MB (CK-2) 0.70 Troponin I < 0.012 NT-Pro-B Natriuret Pep 1790 H 08/10/17 08/10/1718 08:30 08:30 08:30 Creatine Kinase 35 L CK-MB (CK-2) 0.77 Troponin I < 0.012 NT-Pro-B Natriuret Pep 591 H EKG Comments: Telemetry strip shows episodes of atrial fibrillation with rapid ventricular response and nonsustained wide-complex tachycardia. Impressions: Chest X-Ray 08/07/17 00:56 IMPRESSION: No acute cardiopulmonary findings. Assessment & Plan - Diagnosis (1) Chest discomfort Is this a current diagnosis for this admission?: Yes (2) Non-sustained ventricular tachycardia Is this a current diagnosis for this admission?: Yes (3) Coronary artery disease Qualifiers: Coronary Disease-Associated Artery/Lesion type: [place] artery [place] vs. transplanted heart: [place] heart Associated angina: angina presence unspecified Qualified Code(s): I25.10 - Atherosclerotic heart disease of [place] coronary artery without angina pectoris Is this a current diagnosis for this admission?: Yes (4) Atrial fibrillation with RVR Is this a current diagnosis for this admission?: Yes (5) Congestive heart failure Qualifiers: Heart failure type: combined systolic and diastolic Heart failure chronicity: acute on chronic Qualified Code(s): I50.43 - Acute on chronic combined systolic (congestive) and diastolic (congestive) heart failure Is this a current diagnosis for this admission?: Yes (6) Hypomagnesemia Is this a current diagnosis for this admission?: Yes (7) Acute bronchitis Qualifiers: Bronchitis organism: unspecified organism Qualified Code(s): J20.9 - Acute bronchitis, unspecified Is this a current diagnosis for this admission?: Yes - Notes Notes: Chest discomfort: No recurrence. Patient scheduled for a stress test tomorrow. He did have rest imaging today however. Nonsustained wide-complex versus ventricular tachycardia: Had recurrence earlier this a.m. Continue amiodarone 400 mg p.o. twice daily with meals. Increase metoprolol succinate to 100 mg p.o. twice daily. Also add Ranexa 500 mg p.o. twice daily. Atrial fibrillation with rapid ventricular response: Continue with rate control strategy and amiodarone therapy for maintaining sinus rhythm. Continue chronic anticoagulation with Eliquis. Patient would probably just need to continue Brilinta, will stop aspirin if patient is on it. Coronary artery disease: Patient is status post stent placement in the past. Stable. Continue statin therapy, beta-cristobal therapy. Patient started on entresto therapy. Hypomagnesemia: This has been corrected. Hypo-kalemia: This is being replaced. CHF: This is based on BNP level. Patient was noted to be short of breath. Possibly related to systolic and diastolic dysfunction. Echocardiogram obtained was technically difficult. It shows systolic and diastolic dysfunction. Have started patient on entresto therapy. To be further escalated as an outpatient. Acute bronchitis: Stable. Obesity: Patient advised on chronic weight loss. Patient also informed that he might benefit from a sleep study. - Time Time with patient: Greater than 35 minutes - CODE STATUS was discussed, patient remains full code. Surrogate decision-maker unchanged. Multiple medical problems were addressed. More than 50% of the time spent coordinating care, discussing management plans with involved caregivers. Management plans discussed with involved personnels. Medical decision making was of moderate to high complexity, patient's has multiple comorbidities. Medications reviewed and adjusted accordingly: Yes
[2017-08-10] MEDS ORDERED: ATORVASTATIN CALCIUM 40 MG TABLET PO SCH (22:00)
[2017-08-11] MEDS: LEVALBUTEROL HCL NEB 1.25 MG/3 ML AMPUL NEB SCH ×2 (02:33→08:23)
[2017-08-11] MEDS: IPRATROPIUM BROMIDE 0.02% NEB 0.5 MG/2.5 ML AMPUL NEB SCH ×2 (02:33→08:23)
[2017-08-11 04:30] LABS: ANION GAP 12 (5-19); BLOOD UREA NITROGEN 24 mg/dL (7-20); CALCIUM 9.8 mg/dL (8.4-10.2); CARBON DIOXIDE 28 mmol/L (22-30); CHLORIDE 104 mmol/L (98-107); GLUCOSE 201 mg/dL (75-110); PHOSPHORUS 3.2 mg/dL (2.5-4.5); POTASSIUM 4.6 mmol/L (3.6-5.0); SODIUM 144.4 mmol/L (137-145)
[2017-08-11] MEDS: AMIODARONE HCL 200 MG TABLET PO SCH (05:20)
[2017-08-11] MEDS: INSULIN LISPRO 100 UNIT/ML 3 ML VIAL SUBCUT PRN ×2 (08:32→11:07)
[2017-08-11] MEDS ORDERED: REGADENOSON INJ 0.4 MG/5 ML DISP.SYRIN IV ONE (08:52)
[2017-08-11] MEDS ORDERED: AMINOPHYLLINE INJ/PF 250 MG/10 ML SDV IV ONE (08:52)
[2017-08-11] MEDS ORDERED: COPPER PO SCH (10:00)
[2017-08-11] MEDS ORDERED: VIT C PO SCH (10:00)
[2017-08-11] MEDS ORDERED: HYDROCHLOROTHIAZIDE 12.5 MG CAPSULE PO SCH (10:00)
[2017-08-11] MEDS ORDERED: [UNRECOGNIZED DRUG - OTHER] PO SCH (10:00)
[2017-08-11] MEDS ORDERED: FUROSEMIDE 40 MG TABLET PO SCH (10:00)
[2017-08-11] MEDS ORDERED: VIT E PO SCH (10:00)
[2017-08-11] MEDS ORDERED: ZINC PO SCH (10:00)
[2017-08-11] MEDS ORDERED: VIT A PO SCH (10:00)
[2017-08-11] MEDS: RANOLAZINE 500 MG TAB.SR.12H PO SCH (10:07)
[2017-08-11] MEDS: APIXABAN 5 MG TABLET PO SCH (10:07)
[2017-08-11] MEDS: POTASSIUM CHLORIDE 10 MEQ TABLET.SA PO SCH (10:07)
[2017-08-11] MEDS: GUAIFENESIN 600 MG TABLET.SA PO SCH (10:07)
[2017-08-11] MEDS: TICAGRELOR 90 MG TABLET PO SCH (10:07)
[2017-08-11] MEDS: DOCUSATE SODIUM 100 MG CAPSULE PO SCH (10:07)
[2017-08-11] MEDS: SACUBITRIL/VALSARTAN 24 MG/26 MG TABLET PO SCH (10:07)
[2017-08-11] MEDS: FLUTICASONE NASAL SPRAY 50 MCG/SPRY 120 SPRAY/16 GM NASL SCH (10:08)
[2017-08-11] MEDS: METOPROLOL SUCCINATE 50 MG TAB.SR.24H PO SCH (10:10)
[2017-08-11 13:06] VITALS: BP 122/68
--- NOTE | 2017-08-11 14:07 | DRAGON STRESS TEST REPORT ---
INTRAVENOUS LEXISCAN CARDIOLITE STRESS TEST USING SINGLE PHOTON EMMISION COMPUTERIZED TOMOGRAPHIC. DATE OF PROCEDURE: August 11, 2017, INDICATION : Shortness of breath, nonsustained wide-complex tachycardia. CARDIAC RISK FACTORS: Diabetes, hypertension, dyslipidemia RESTING EKG: Sinus rhythm, no acute ST-T wave changes are noted. STRESS EKG: No significant ST segment changes noted with LexiScan bolus REASON FOR TERMINATION: Protocol. PROCEDURE REPORT: Baseline heart rate 71 beats per minute with blood pressure of 135/69. Patient had no significant complaints. Patient was bolused with Lexiscan 0.4 mg intravenously followed by saline bolus. Heart rate at 2 minutes post bolus 84 with a blood pressure of 135/64. 3 minutes post bolus heart rate 78 with blood pressure of 142/67. No significant EKG changes were noted. Patient had no significant complaints during the procedure or postprocedure. Patient injected with Aminophyllin 75 mg at 3 minutes or later after Lexiscan bolus. CONCLUSIONS: Normal EKG and hemodynamic response to IV LexiScan. NUCLEAR DATA: Rest images was done on day 1, stress images performed on day 2. At rest the patient was given 35.0 millicuries of technetium 99 sestamibi injected intravenously. As per protocol rest gated SPECT images were obtained. On day of stress test, the patient was given intravenous LexiScan at a dose of 0.4 mg in 5 mL intravenously, followed by flush with normal saline. Subsequently the stress dose of 35.9 millicuries of technetium 99 sestamibi was injected intravenously. As per protocol stress gated images were obtained. NUCLEAR INTERPRETATION: Both raw and processed data were used for interpretation. Visual, qualitative, computer-generated quantitative data was used. There was good myocardial uptake of technetium compound. Motion artifact and soft tissue attenuations were noted. Increased visceral uptake was noted. Predominantly severe fixed defect noted in the inferior wall with minimal area of surrounding transient perfusion defect. SDS of 1 therefore probably not significant. EKG gated imaging showed LV EF at 33 %, rest and stress gated EF similar visually, inferior wall hypokinesia noted. T. I D. ratio was 1.14. Lung heart ratio noted to be within normal limits 0.38. No significant extracardiac and abnormal radiotracer activities were noted. RV free wall uptake was noted to be WNL. IMPRESSION: Also refer to comments under nuclear interpretation. Also test results needs to be interpreted in the context of pretest probability. 1. Severe fixed defect suggestive of scar of prior myocardial infarction noted in the inferior wall with minimal surrounding transient perfusion defect or ischemia. 2. No other definitive areas of transient or fixed perfusion defect noted. 3. EKG gated imaging shows left ventricular ejection fraction of approx. 33 % with inferior wall hypokinesia. 4. Clinical correlation requested as occasionally worse disease or balanced ischemia could be missed. In approximately 10% of the cases Lexiscan may not cause adequate vasodilatory stress. RECOMMENDATIONS: Aggressive risk factor modification and medical management. Further evaluation may be needed if continued symptoms or other high risk indicators are noted on clinical evaluation. Close cardiology follow-up is also recommended. Clinical correlation with echocardiogram derived ejection fraction. Inability to exercise by itself can lead to increased cardiovascular event risks. Consider cardiology consultation and or follow-up if clinically indicated. I am available for cardiology evaluation and consultation if requested by the irish moss gatherer, unless patient already has a gill box fixer. DANA
--- NOTE | 2017-08-11 14:42 | PDOC DISCHARGE SUMMARY ---
General - Admit/Disc Date/PCP Admission Date/Primary Care Provider: 08/07/17 04:02 testing lead: Dr. Reilly Discharge Date: 08/11/17 - Discharge Diagnosis (1) Atrial fibrillation with RVR Is this a current diagnosis for this admission?: Yes (2) Acute bronchitis Is this a current diagnosis for this admission?: Yes (3) Hypomagnesemia Is this a current diagnosis for this admission?: Yes (4) Non-sustained ventricular tachycardia Is this a current diagnosis for this admission?: Yes (5) Diabetes Is this a current diagnosis for this admission?: Yes (6) Coronary artery disease Is this a current diagnosis for this admission?: Yes (7) Acute CHF (congestive heart failure) Is this a current diagnosis for this admission?: Yes Summary: Class III systolic and diastolic CHF exacerbation - Additional Information Resuscitation Status: Full Code Discharge Diet: Cardiac, Diabetic Discharge Activity: Activity As Tolerated Prescriptions: Amiodarone HCl [Cordarone 200 mg Tablet] 200 mg PO BID 15 Days #30 tablet Amiodarone HCl [Cordarone 200 mg Tablet] 400 mg PO Q12A 5 Days #10 tablet Amiodarone HCl [Cordarone 200 mg Tablet] 200 mg PO BID 15 Days #30 tablet Apixaban [Eliquis 5 mg Tablet] 5 mg PO BID 30 Days #30 tablet Magnesium Oxide 400 mg PO DAILY 30 Days #30 tablet Potassium Chloride 20 meq PO MOWEFR 30 Days #20 tab.er.prt Ranolazine [Ranexa 500 mg Tab.sr] 500 mg PO BID 30 Days #60 tab.sr.12h Sacubitril/Valsartan [Entresto 24 mg/26 mg Tablet] 1 tab PO Q12 30 Days #30 tablet Home Medications: Furosemide [Lasix] 40 mg PO DAILY 05/29/17 Ticagrelor [Brilinta 90 mg Tablet] 90 mg PO Q12 05/29/17 Acetaminophen [Tylenol Extra Strength 500 mg Tablet] 500 mg PO Q8 08/07/17 Fluticasone Propionate [Flonase Nasal [place] 50 Mcg/[place] 16 gm] 1 spray NAREB DAILY 08/07/17 Glimepiride [Amaryl 4 mg Tablet] 4 mg PO BID 08/07/17 Hydrochlorothiazide [Hydrodiuril 12.5 mg Capsule] 12.5 mg PO DAILY 08/07/17 Metformin HCl [Metformin HCl ER] 750 mg PO BID 08/07/17 Simvastatin [Zocor 20 mg Tablet] 20 mg PO DAILY 08/07/17 Vit A/Vit C/Vit E/Zinc/Copper [Preservision Areds Softgel] 2 cap PO DAILY Amiodarone HCl [Cordarone 200 mg Tablet] 400 mg PO Q12A 5 Days #10 tablet Apixaban [Eliquis 5 mg Tablet] 5 mg PO BID 30 Days #30 tablet 08/11/17 Magnesium Oxide 400 mg PO DAILY 30 Days #30 tablet 08/11/17 Metoprolol Succinate [Toprol Xl 50 mg Tab.sr] 100 mg PO Q12 tab.sr.24h Potassium Chloride 20 meq PO MOWEFR 30 Days #20 tab.er.prt 08/11/17 Ranolazine [Ranexa 500 mg Tab.sr] 500 mg PO BID 30 Days #60 tab.sr.12h 08/11/17 Sacubitril/Valsartan [Entresto 24 mg/26 mg Tablet] 1 tab PO Q12 30 Days #30 tablet 08/11/17 Amiodarone HCl [Cordarone 200 mg Tablet] 200 mg PO BID 15 Days #30 tablet Amiodarone HCl [Cordarone 200 mg Tablet] 200 mg PO BID 15 Days #30 tablet History of Present Illness History of Present Illness: 77-year-old male with past medical history of Hypertension Hyperlipidemia Coronary artery disease status post stenting 6 Congestive heart failure The patient was admitted on August 07 with shortness of breath and was found to have A. fib with RVR. He was treated with IV Cardizem IV digoxin and IV Lopressor. He was diagnosed with acute bronchitis and treated with nebulizers and antibiotics. He is suspected to have underlying obstructive sleep apnea and would benefit from an outpatient stress test. Lexiscan Cardiolite stress test done on August 11 showed severe fixed defects suggestive of scarring from prior myocardial infarctions. Minimal surrounding transient perfusion defect seen. EF 33% with inferior wall hypokinesis. He was treated with IV amiodarone and was transitioned to oral amiodarone. He is on Eliquis for anticoagulation. Entresto and ranexa were added to his regimen. He is doing well and is stable for discharge home. Follow up PCP and Cardiology in 1 week. Sleep study as outpatient Hospital Course Hospital Course: As above Physical Exam Vital Signs: Temp Pulse Resp BP Pulse Ox 98.7 F 60 14 122/68 99 08/11/17 13:00 08/11/17 13:00 08/11/17 13:00 08/11/17 13:00 08/11/17 13:00 Intake & Output 08/10/17 08/11/17 08/12/17 06:59 06:59 06:59 Intake Total 1720 680 Output Total 1225 750 550 Balance 495 -70 -550 Weight 100.6 kg General appearance: PRESENT: no acute distress Head exam: PRESENT: normocephalic Respiratory exam: PRESENT: symmetrical, unlabored Cardiovascular exam: PRESENT: RRR Results Laboratory Results: 08/10/17 02:27 08/11/17 03:56 08/11/17 03:56 Sodium 144.4 Potassium 4.6 Chloride 104 Carbon Dioxide 28 Anion Gap 12 BUN 24 H Creatinine 0.76 Est GFR ( Amer) > 60 Est GFR (Non-Af Amer) > 60 Glucose 201 H Calcium 9.8 Phosphorus 3.2 Magnesium 2.0 08/07/17 08/07/17 08/07/17 07:10 07:10 12:16 Creatine Kinase 33 L 41 L CK-MB (CK-2) 0.62 Troponin I 0.017 NT-Pro-B Natriuret Pep 08/07/17 08/07/17 08/07/17 12:16 18:30 18:30 Creatine Kinase 44 L CK-MB (CK-2) 0.62 0.73 Troponin I 0.027 0.027 NT-Pro-B Natriuret Pep 08/08/17 08/10/17 08/10/17 04:05 02:27 02:27 Creatine Kinase 34 L CK-MB (CK-2) 0.70 Troponin I < 0.012 NT-Pro-B Natriuret Pep 1790 H 08/10/17 08/10/17 08/10/17 08:30 08:30 08:30 Creatine Kinase 35 L CK-MB (CK-2) 0.77 Troponin I < 0.012 NT-Pro-B Natriuret Pep 591 H Impressions: Chest X-Ray 08/07/17 00:56 IMPRESSION: No acute cardiopulmonary findings. Qualifiers - * PATIENT BEING DISCHARGED WITH ANY OF THE FOLLOWING DIAGNOSIS: No Plan Time Spent: Greater than 30 Minutes
--- NOTE | 2017-08-11 17:57 | PDOC PROGRESS REPORT ---
Subjective Progress Note for:: 08/11/17 Subjective:: Patient did fine overnight without any palpitations, or any other symptoms. Patient today underwent nuclear stress test without any complications. Results were discussed with the patient and also hospitalist in charge. Follow-up plans also discussed. Pt is denying any chest arm or neck discomfort. Patient denying any PND, orthopnea. Patient denied any sustained palpitations, dizziness, syncope, near syncope. Patient denying any fever chills. Patient denying any other significant discomfort. Patient is maintaining sinus rhythm. Review of systems: Rest review of systems negative. Medications: Medications have been reviewed. Reason For Visit: AFIB, ACUTE BRONCHITIS, HEART FAILURE Physical Exam Vital Signs: Temp Pulse Resp BP Pulse Ox 98.7 F 60 14 122/68 99 08/11/17 13:00 08/11/17 13:00 08/11/17 13:00 08/11/17 13:00 08/11/17 13:00 Intake & Output 08/10/17 08/11/17 08/12/17 06:59 06:59 06:59 Intake Total 1720 680 Output Total 1225 750 550 Balance 495 -70 -550 Weight 100.6 kg Exam: GENERAL: well-nourished and in no acute distress. Alert and oriented x3 HEAD: Atraumatic, normocephalic. EYES: Pupils equal round and reactive to light, extraocular movements intact, sclera anicteric, conjunctiva are normal. ENT: TMs normal, nares patent, oropharynx clear without exudates. Moist mucous membranes. No oral ulcerations or bleeding gums noted NECK: supple without lymphadenopathy. Trachea is central. No cervical or axillary lymphadenopathy noted. Carotids are 2+, JVD WNL LUNGS: Respiration seems nonlabored, no significant accessory muscle action noted. Breath sounds clear to auscultation bilaterally and equal noted. No wheezes rales or rhonchi noted. No significant dullness noted on percussion. CHEST: Palpation of the chest wall shows no significant chest wall tenderness. HEART: [place] [employer], No PSH, 1/6 TENA aortic area, 1/6 mosley systolic murmur mitral area, no rubs, no gallops. ABDOMEN: Soft, no significant tenderness appreciated, normoactive bowel sounds. No guarding, no rebound. No rigidity noted . No masses appreciated. EXTREMITIES: Pedal pulses are 1-2+, no calf tenderness noted. No clubbing or cyanosis. negative pedal edema noted NEUROLOGICAL: Focused neurological exam showed no significant neurologic deficit. Normal speech, no focal weakness appreciated. PSYCH: Normal mood, normal affect. Judgment and insight within normal limits. SKIN: No significant ecchymosis, skin is noted to be warm. MUSCULOSKELETAL EXAM: No significant acute joint swelling noted. Results Laboratory Results: 08/10/17 02:27 08/11/17 03:56 08/11/17 03:56 Sodium 144.4 Potassium 4.6 Chloride 104 Carbon Dioxide 28 Anion Gap 12 BUN 24 H Creatinine 0.76 Est GFR ( Amer) > 60 Est GFR (Non-Af Amer) > 60 Glucose 201 H Calcium 9.8 Phosphorus 3.2 Magnesium 2.0 08/07/17 08/07/17 08/07/17 07:10 07:10 12:16 Creatine Kinase 33 L 41 L CK-MB (CK-2) 0.62 Troponin I 0.017 NT-Pro-B Natriuret Pep 08/07/17 08/07/17 08/07/17 12:16 18:30 18:30 Creatine Kinase 44 L CK-MB (CK-2) 0.62 0.73 Troponin I 0.027 0.027 NT-Pro-B Natriuret Pep 08/08/17 08/10/17 08/10/17 04:05 02:27 02:27 Creatine Kinase 34 L CK-MB (CK-2) 0.70 Troponin I < 0.012 NT-Pro-B Natriuret Pep 1790 H 08/10/17 08/10/17 08/10/17 08:30 08:30 08:30 Creatine Kinase 35 L CK-MB (CK-2) 0.77 Troponin I < 0.012 NT-Pro-B Natriuret Pep 591 H EKG Comments: Telemetry shows sinus rhythm without any sustained tachycardia or bradycardia. Impressions: Chest X-Ray 08/07/17 00:56 IMPRESSION: No acute cardiopulmonary findings. Assessment & Plan - Diagnosis (1) Chest discomfort Is this a current diagnosis for this admission?: Yes (2) Non-sustained ventricular tachycardia Is this a current diagnosis for this admission?: Yes (3) Coronary artery disease Qualifiers: Coronary Disease-Associated Artery/Lesion type: [place] artery [place] vs. transplanted heart: [place] heart Associated angina: angina presence unspecified Qualified Code(s): I25.10 - Atherosclerotic heart disease of [place] coronary artery without angina pectoris Is this a current diagnosis for this admission?: Yes (4) Atrial fibrillation with RVR Is this a current diagnosis for this admission?: Yes (5) Congestive heart failure Qualifiers: Heart failure type: combined systolic and diastolic Heart failure chronicity: acute on chronic Qualified Code(s): I50.43 - Acute on chronic combined systolic (congestive) and diastolic (congestive) heart failure Is this a current diagnosis for this admission?: Yes (6) Hypomagnesemia Is this a current diagnosis for this admission?: Yes (7) Acute bronchitis Qualifiers: Bronchitis organism: unspecified organism Qualified Code(s): J20.9 - Acute bronchitis, unspecified Is this a current diagnosis for this admission?: Yes - Notes Notes: Chest discomfort: No recurrence. Stress test shows predominantly a severe fixed defect involving the inferior wall with small area of surrounding ischemia. It was felt to be not significant. Results of nuclear stress test discussed. Patient informed that at this time, based on his clinical symptoms, medical management is being recommended. However should he have recurrence of chest discomfort, also significant cardiac dysrhythmia and then a heart catheterization should be considered. Patient was asked to close cardiology follow-up. Patient advised to follow-up with me for evaluation of sleep apnea.. Nonsustained wide-complex versus ventricular tachycardia: No further recurrences. It is felt that patient most likely has aberrant conduction rather than ventricular tachycardia. Continue amiodarone 400 mg p.o. twice daily with meals for 1 week and then 200 mg p.o. twice daily. Continue metoprolol succinate at 100 mg p.o. twice daily. Continue Ranexa 500 mg p.o. twice daily. Atrial fibrillation with rapid ventricular response: Continue with rate control strategy and amiodarone therapy for maintaining sinus rhythm. Continue chronic anticoagulation with Eliquis. Patient would probably just need to continue Brilinta, currently not on aspirin. Coronary artery disease: Patient is status post stent placement in the past. Stable. Continue statin therapy, beta-cristobal therapy. Patient started on entresto therapy. Patient tolerating new therapies. Hypomagnesemia: This has been corrected. Hypo-kalemia: This is now corrected.. CHF: This is based on BNP level. Patient was noted to be short of breath. Possibly related to systolic and diastolic dysfunction. Echocardiogram obtained was technically difficult. It shows systolic and diastolic dysfunction. Have started patient on entresto therapy. Acute bronchitis: Stable. Obesity: Patient advised on chronic weight loss. Patient also informed that he might benefit from a sleep study. Cardiac evaluations and course in the hospital reviewed with the patient. Patient encouraged to follow-up with his primary care marine equipment research engineer. Patient was also asked to follow-up with - Time Time with patient: Greater than 35 minutes - Patient was seen multiple times today. Total time exceeds about 40 minutes. Results of nuclear stress test discussed. Results of 2D echocardiogram discussed. Medical therapy discussed. Patient questions answered. Follow-up discussed. Medications reviewed and adjusted accordingly: Yes
[2017-08-11] MEDS ORDERED: AMIODARONE HCL 200 MG TABLET PO SCH (22:00)
== END 2017-08-11 15:10 | disposition home or self-care (01) | DRG 308 ==
LOC: ER 00:44 → EH 04:02 → 3N 05:56 → 3W 06:09 → ICU 15:54
PROVIDERS: ADMIT Internal Medicine; ATTEND Internal Medicine
PROC: 5A09457 Assistance with Respiratory Ventilation, 24-96 Consecutive Hours, Continuous Positive Airway Pressure (ICD-10-PCS; principal; 2017-08-07)
DX: I48.91 Unspecified atrial fibrillation (principal); I50.43 Acute on chronic combined systolic (congestive) and diastolic (congestive) heart failure; J20.9 Acute bronchitis, unspecified; I47.2 Ventricular tachycardia; I11.0 Hypertensive heart disease with heart failure; I25.10 Atherosclerotic heart disease of native coronary artery without angina pectoris; E83.42 Hypomagnesemia; J34.89 Other specified disorders of nose and nasal sinuses; E78.5 Hyperlipidemia, unspecified; G47.33 Obstructive sleep apnea (adult) (pediatric); E66.9 Obesity, unspecified; M13.861 Other specified arthritis, right knee; E11.9 Type 2 diabetes mellitus without complications; Z87.891 Personal history of nicotine dependence; Z79.84 Long term (current) use of oral hypoglycemic drugs; Z95.5 Presence of coronary angioplasty implant and graft; Z79.02 Long term (current) use of antithrombotics/antiplatelets; Z79.899 Other long term (current) drug therapy
CPT/HCPCS: 36415; 71045; 78452; 80048; 80053; 80061; 81001; 82550; 82553; 82962; 83735; 83880; 84100; 84443; 84484; 85025; 85027; 93005; 93010; 93017; 93306; 94640; 94660; 99291; A9500; G8978-GP; G8979-GP; G8980-GP; J0280; J0282; J1160; J1644; J1650; J1815; J1940; J2785; J3475; J3490; J7040; J7060; J7620; Q9969

== ENCOUNTER → 2018-01-10 | Outpatient (CLI) | payer MEDICARE, OTHER ==
--- NOTE | 2018-01-10 11:52 | RADIOLOGY REPORT (SQ) ---
EXAM DESCRIPTION: CHEST PA/LATERAL COMPLETED DATE/TIME: 01/10/2018 11:18 am REASON FOR STUDY: HEART FAILURE COMPARISON: Chest films 08/07/2017, 05/29/2017, 07/31/2016 EXAM PARAMETERS: NUMBER OF VIEWS: two views TECHNIQUE: Digital Frontal and Lateral radiographic views of the chest acquired. RADIATION DOSE: NA LIMITATIONS: none FINDINGS: LUNGS AND PLEURA: Chronic bandlike scarring or atelectasis just above the left hemidiaphra gm. No acute infiltrates. No pleural effusion. No pneumothorax. MEDIASTINUM AND HILAR STRUCTURES: No masses or contour abnormalities. HEART AND VASCULAR STRUCTURES: Heart normal size. No evidence for failure. BONES: No acute findings. HARDWARE: None in the chest. OTHER: No other significant finding. IMPRESSION: No acute findings TECHNICAL DOCUMENTATION: JOB ID: [id number] [employer]- All Rights Reserved Reading location - IP/workstation name: [email or web address]
[2018-01-10 12:13] LABS: ANION GAP 9 (5-19); BLOOD UREA NITROGEN 19 mg/dL (7-20); CALCIUM 9.6 mg/dL (8.4-10.2); CARBON DIOXIDE 36 mmol/L (22-30); CHLORIDE 97 mmol/L (98-107); GLUCOSE 176 mg/dL (75-110); POTASSIUM 5.2 mmol/L (3.6-5.0); SODIUM 142.3 mmol/L (137-145)
== END ==
LOC: OD 11:02
PROVIDERS: ATTEND Internal Medicine
DX: N19 Unspecified kidney failure (principal); E83.42 Hypomagnesemia; I50.9 Heart failure, unspecified
CPT/HCPCS: 36415; 71046; 80048

== ENCOUNTER → 2018-02-10 | Outpatient (CLI) | payer MEDICARE, OTHER | LOC: OD 11:05 | PROVIDERS: ATTEND Internal Medicine | DX: E87.5 Hyperkalemia (principal) | CPT/HCPCS: 36415; 84132 ==

== ENCOUNTER → 2018-02-28 | Outpatient (CLI) | payer MEDICARE, OTHER ==
--- NOTE | 2018-02-28 10:56 | RADIOLOGY REPORT (SQ) ---
EXAM DESCRIPTION: RIBS LEFT W/PA CHEST COMPLETED DATE/TIME: 02/28/2018 10:29 am REASON FOR STUDY: Z22.32XA FRACTURE OF ONE RIB, LEFT SIDE, INIT FOR CLOS FX S22.32XA FRACTURE OF ON E RIB, LEFT SIDE, INIT FOR CLOS FX COMPARISON: Chest x-ray dated 08/07/2017 TECHNIQUE: Frontal view of the chest and additional views of the left ribs acquired. NUMBER OF VIEWS: Four view. LIMITATIONS: None. FINDINGS: FRONTAL CXR: No pneumothorax. No pleural effusion. No atelectasis or infiltrates. RIBS: No displaced rib fractures. No lytic or blastic bony lesions. OTHER: No other significant finding. IMPRESSION: NO PNEUMOTHORAX. NO DISPLACED RIB FRACTURES. COMMENT: SITE OF TRAUMA/COMPLAINT MARKED/STAMP COMPLETED: NO. TECHNICAL DOCUMENTATION: JOB ID: [id number] [employer]- All Rights Reserved Reading location - IP/workstation name: [email or web address]
== END ==
LOC: OD 10:15
PROVIDERS: ATTEND Internal Medicine
DX: S22.32XA Fracture of one rib, left side, initial encounter for closed fracture (principal); X58.XXXA Exposure to other specified factors, initial encounter

== ENCOUNTER → 2018-03-28 | Outpatient (CLI) | payer MEDICARE, OTHER ==
[2018-03-28 10:02] LABS: ABSOLUTE EOSINOPHILS # (AUTO) 0.1 10^3/uL (0.0-0.6); ABSOLUTE LYMPHOCYTES (AUTO) 1.9 10^3/uL (0.5-4.7); ABSOLUTE MONOCYTES (AUTO) 0.3 10^3/uL (0.1-1.4); ABSOLUTE NEUT (AUTO) 3.3 10^3/uL (1.7-8.2); BASOPHILS % (AUTO) 0.7 % (0-2); EOSINOPHILS % (AUTO) 2.1 % (0-6); HEMATOCRIT 39.2 % (37.9-51.0); HEMOGLOBIN 13.3 g/dL (13.5-17.0); LYMPHOCYTES % (AUTO) 33.8 % (13-45); MEAN CORPUSCULAR HEMOGLOBIN 31.3 pg (27.0-33.4); MEAN CORPUSCULAR HGB CONC 33.9 g/dL (32.0-36.0); MEAN CORPUSCULAR VOLUME 92 fl (80-97); PLATELET COUNT 215 10^3/uL (150-450); RED BLOOD COUNT 4.25 10^6/uL (4.35-5.55); RED CELL DISTRIBUTION WIDTH 15.5 % (11.5-14.0); SEGMENTED NEUTROPHILS % (AUTO) 57.4 % (42-78); TOTAL CELLS COUNTED % (AUTO) 100 %; WHITE BLOOD COUNT 5.7 10^3/uL (4.0-10.5)
[2018-03-28 10:11] LABS: APPEARANCE,URINE CLEAR; BILIRUBIN,URINE NEGATIVE (NEGATIVE); COLOR,URINE STRAW; GLUCOSE, URINE NEGATIVE (NEGATIVE); KETONES,URINE NEGATIVE (NEGATIVE); LEUKOCYTE ESTERASE,URINE SMALL (NEGATIVE); NITRITE,URINE NEGATIVE (NEGATIVE); PROTEIN,URINE NEGATIVE (NEGATIVE); URINE SPECIFIC GRAVITY 1.006; UROBILINOGEN,URINE NEGATIVE mg/dL (<2.0)
[2018-03-28 11:13] LABS: ANION GAP 9 (5-19); BLOOD UREA NITROGEN 18 mg/dL (7-20); CALCIUM 9.6 mg/dL (8.4-10.2); CARBON DIOXIDE 32 mmol/L (22-30); CHLORIDE 101 mmol/L (98-107); GLUCOSE 210 mg/dL (75-110); POTASSIUM 4.6 mmol/L (3.6-5.0); SODIUM 141.6 mmol/L (137-145)
== END ==
LOC: OD 09:07
PROVIDERS: ATTEND Nurse Practitioner Adult Health
DX: I48.91 Unspecified atrial fibrillation (principal)
CPT/HCPCS: 36415; 80048; 81001; 83735; 85025

== ENCOUNTER 2018-07-30 23:02 | Emergency (ER) | payer MEDICARE, OTHER ==
[2018-07-31] MEDS ORDERED: FUROSEMIDE INJ/PF 20 MG/2 ML SDV IV ONE (00:42)
--- NOTE | 2018-07-31 00:42 | ER Document Report ---
ED Medical Screen (RME) - General Chief Complaint: Shortness Of Breath Stated Complaint: SHORTNESS OF BREATH Time Seen by Provider: 07/31/18 00:33 Primary Care Provider: VANI PIERCE ANP-C [Primary Care Provider] - Follow up as needed Notes: Patient is a 78-year-old male who presents to the emergency department with a chief complaint of shortness of breath. He states that his symptoms started yesterday. He denies any chest pain. He has had a wet sounding cough since yesterday. He has a past medical history atrial fibrillation, coronary artery disease, diabetes, and congestive heart failure. He is taking his medications and he is currently on Lasix. Exam: Crackles noted to bilateral bases of lungs. I have greeted and performed a rapid initial assessment of this patient. A comprehensive ED assessment and evaluation of the patient, analysis of test results and completion of medical decision making process will be conducted by an additional ED providers. TRAVEL OUTSIDE OF THE [place] IN LAST 30 DAYS: No - Related Data Allergies/Adverse Reactions: No Known Allergies Allergy (Unverified 06/24/16 17:16) Past Medical History - Past Medical History Cardiac Medical History: Reports: Hx Hypercholesterolemia, Hx Hypertension Pulmonary Medical History: Reports: Hx Bronchitis Endocrine Medical History: Reports: Hx Diabetes Mellitus Type 1, Hx Diabetes Mellitus Type 2 Renal/ Medical History: Denies: Hx Peritoneal Dialysis Musculoskeltal Medical History: Reports Hx Arthritis - right knee Past Surgical History: Reports: Hx Cardiac Catheterization - 6stents, Hx Orthopedic Surgery - R knee - Immunizations Hx Diphtheria, Pertussis, Tetanus Vaccination: Yes History of Influenza Vaccine for 12/2016 - 05/2017 Season: Unknown Physical Exam - Vital signs Vitals: Temp Pulse Resp BP Pulse Ox 98.0 F 74 20 133/54 H 93 07/30/18 23:07 07/30/18 23:07 07/30/18 23:07 07/30/18 23:07 07/30/18 23:07 Course - Vital Signs Vital signs: Temp Pulse Resp BP Pulse Ox 98.0 F 74 20 133/54 H 93 07/30/18 23:07 07/30/18 23:07 07/30/18 23:07 07/30/18 23:07 07/30/18 23:07 Doctor's Discharge - Discharge Referrals: KARI,VAIN J, ANP-C [Primary Care Provider] - Follow up as needed
[2018-07-31 01:09] LABS: ABSOLUTE EOSINOPHILS # (AUTO) 0.1 10^3/uL (0.0-0.6); ABSOLUTE LYMPHOCYTES (AUTO) 1.8 10^3/uL (0.5-4.7); ABSOLUTE MONOCYTES (AUTO) 0.8 10^3/uL (0.1-1.4); ABSOLUTE NEUT (AUTO) 7.2 10^3/uL (1.7-8.2); BASOPHILS % (AUTO) 0.4 % (0-2); EOSINOPHILS % (AUTO) 1.3 % (0-6); HEMATOCRIT 38.1 % (37.9-51.0); HEMOGLOBIN 12.6 g/dL (13.5-17.0); LYMPHOCYTES % (AUTO) 17.8 % (13-45); MEAN CORPUSCULAR HEMOGLOBIN 30.3 pg (27.0-33.4); MEAN CORPUSCULAR HGB CONC 33.2 g/dL (32.0-36.0); MEAN CORPUSCULAR VOLUME 91 fl (80-97); MONOCYTES % (AUTO) 7.7 % (3-13); PLATELET COUNT 191 10^3/uL (150-450); RED BLOOD COUNT 4.17 10^6/uL (4.35-5.55); RED CELL DISTRIBUTION WIDTH 14.8 % (11.5-14.0); SEGMENTED NEUTROPHILS % (AUTO) 72.8 % (42-78); TOTAL CELLS COUNTED % (AUTO) 100 %
--- NOTE | 2018-07-31 01:18 | RADIOLOGY REPORT (SQ) ---
EXAM DESCRIPTION: XR CHEST 1 VIEW COMPLETED DATE/TME: 07/31/2018 00:39 CLINICAL HISTORY: 78 years, Male, shortness of breath COMPARISON: 02/28/2018 chest NUMBER OF VIEWS: 1 TECHNIQUE: Portable chest LIMITATIONS: None. FINDINGS: Heart size is normal. Mild atheromatous change thoracic aorta. Left-sided pacing device. Subsegmental atelectasis right lung base. Lungs are otherwise clear. No pneumothorax IMPRESSION: No acute cardiopulmonary process copyright 2010 [email or web address]- All Rights Reserved
[2018-07-31 02:16] LABS: ALANINE AMINOTRANSFERASE 20 U/L (21-72); ALBUMIN 4.1 g/dL (3.5-5.0); ALKALINE PHOSPHATASE 63 U/L (38-126); ANION GAP 10 (5-19); ASPARTATE AMINO TRANSFERASE 18 U/L (17-59); BILIRUBIN,DIRECT 0.4 mg/dL (0.0-0.4); BILIRUBIN,TOTAL 0.6 mg/dL (0.2-1.3); BLOOD UREA NITROGEN 25 mg/dL (7-20); CALCIUM 9.8 mg/dL (8.4-10.2); CARBON DIOXIDE 34 mmol/L (22-30); CHLORIDE 97 mmol/L (98-107); CREATINE KINASE 76 U/L (55-170); GLUCOSE 212 mg/dL (75-110); POTASSIUM 4.2 mmol/L (3.6-5.0); SODIUM 140.5 mmol/L (137-145); TOTAL PROTEIN 7.2 g/dL (6.3-8.2)
[2018-07-31] MEDS ORDERED: ALBUTEROL SULFATE 0.083% NEB 2.5 MG/3 ML AMPUL NEB ONE ×2 (02:27→04:28)
[2018-07-31 02:35] LABS: CREATINE KINASE MB 0.99 ng/mL (<4.55); NT PRO BNP 1310 pg/mL (<450); TROPONIN I < 0.012 ng/mL
--- NOTE | 2018-07-31 03:31 | ER Document Report ---
ED General - General Chief Complaint: Shortness Of Breath Stated Complaint: SHORTNESS OF BREATH Time Seen by Provider: 07/31/18 00:33 Primary Care Provider: VANI PIERCE ANP-C [NO LOCAL MD] - Follow up as needed Notes: Patient is a 78-year-old male presents with complaint of coughing and some shortness of breath of last 24 hours. No chest pain. No fevers. No vomiting. Says he will occasionally bring up some phlegm. He denies any increase in edema in his lower extremities. He is already on a fluid pill. He has no other complaints at this time. TRAVEL OUTSIDE OF THE [place] IN LAST 30 DAYS: No - Related Data Allergies/Adverse Reactions: No Known Allergies Allergy (Unverified 06/24/16 17:16) Past Medical History - Social History Smoking Status: Unknown if Ever Smoked Frequency of alcohol use: None Drug Abuse: None Family History: CAD, COPD, Hypertension - Past Medical History Cardiac Medical History: Reports: Hx Hypercholesterolemia, Hx Hypertension Pulmonary Medical History: Reports: Hx Bronchitis Endocrine Medical History: Reports: Hx Diabetes Mellitus Type 1, Hx Diabetes Mellitus Type 2 Renal/ Medical History: Denies: Hx Peritoneal Dialysis Musculoskeletal Medical History: Reports Hx Arthritis - right knee Past Surgical History: Reports: Hx Cardiac Catheterization - 6stents, Hx Orthopedic Surgery - R knee - Immunizations Hx Diphtheria, Pertussis, Tetanus Vaccination: Yes Review of Systems - Review of Systems Notes: My Normal Review Basic REVIEW OF SYSTEMS: CONSTITUTIONAL : Denies fever, chills, or sweats. Denies recent illness. EENT: Denies eye, ear, throat, or mouth pain or symptoms. Denies nasal or sinus congestion. CARDIOVASCULAR: Denies chest pain. RESPIRATORY: Cough and congestion GASTROINTESTINAL: Denies abdominal pain. Denies nausea, vomiting, or diarrhea. MUSCULOSKELETAL: Denies neck or back pain or joint pain or swelling. SKIN: Denies rash or skin lesions. NEUROLOGICAL: Denies altered mental status or loss of consciousness. Denies headache. Denies weakness or paralysis or loss of use of either side. Denies problems with gait or speech. Denies sensory or motor loss. ALL OTHER SYSTEMS REVIEWED AND NEGATIVE. Physical Exam - Vital signs Vitals: Temp Pulse Resp BP Pulse Ox 98.0 F 74 20 133/54 H 93 07/30/18 23:07 07/30/18 23:07 07/30/18 23:07 07/30/18 23:07 07/30/18 23:07 - Notes Notes: General Appearance: Well nourished, alert, cooperative, no acute distress, no obvious discomfort. Well-appearing. Vitals: reviewed, See vital signs table. Eyes: PERRL, EOMI, Conjuctiva clear Mouth: No decreasd moisture Throat: No tonsillar inflammation, No airway obstruction, No lymphadenopathy Lungs: rhonchorous breath sounds bilaterally. No accessory muscle use. No tachypnea Heart: Normal rate, Regular rythm, No murmur, no rub Abdomen: soft, No rigidity, No abdominal tenderness, No guarding, no rebound Extremities: strength 5/5 in all extremities, good pulses in all extremities, no swelling or tenderness in the extremities, 1+ bilateral lower extremity edema which patient says is unchanged from his baseline. Skin: warm, dry, appropriate color, no rash Neuro: speech clear, oriented x 3, normal affect, responds appropriately to questions. Course - Re-evaluation Re-evalutation: 07/31/18 03:30 Patient is feeling improved after breathing treatment. We will watch him a little bit longer to make sure his oxygenation stays okay. If he continues to do well and he ambulates well then we will be able to discharge him home. 07/31/18 03:30 07/31/18 03:53 Stayed at 94% on room air. He did not get significantly short of breath. The informs me that she feels that he is been off and that he is been somewhat foggy headed and easily irritable. She is concerned that there is something more going on. I informed him that based on reviewing his chest x-ray compared to his previous I think he probably is developing pneumonia and therefore I would like to start antibiotics. I will also go ahead and check a venous blood gas to make sure that he is not CO2 retaining as well. 07/31/18 05:47 On reevaluation patient's O2 saturation is 97% on room air. His lung campa have cleared to the second breathing treatment. He looks very well. He does have mildly elevated CO2 however his pH is normal suggesting that this is a chronically elevated CO2. He appears to be mentating just fine here in the ER. Is acting appropriately. I feel he safe to be discharged home. I informed him his to have a low threshold to return to the ER if he has fevers, worsening difficulty breathing, any confusion or altered mental status, or if they feel he is worsening in any way. I encouraged him to follow-up with his primary care physician on Saturday for reevaluation. Patient and agree with plan and patient will be discharged home. Dictation of this chart was performed using voice recognition software; therefore, there may be some unintended grammatical errors. - Vital Signs Vital signs: Temp Pulse Resp BP Pulse Ox 98.0 F 74 21 H 114/65 96 07/30/18 23:07 07/30/18 23:07 07/31/18 05:02 07/31/18 05:02 07/31/18 05:02 - Laboratory Result Diagrams: 07/31/18 00:51 07/31/18 00:51 Laboratory results interpreted by me: 07/31/18 07/31/18 07/31/18 00:51 00:51 00:51 RBC 4.17 L Hgb 12.6 L RDW 14.8 H VBG pCO2 VBG HCO3 Chloride 97 L Carbon Dioxide 34 H BUN 25 H Glucose 212 H ALT 20 L NT-Pro-B Natriuret Pep 1310 H 07/31/18 04:00 RBC Hgb RDW VBG pCO2 66.4 H* VBG HCO3 36.9 H Chloride Carbon Dioxide BUN Glucose ALT NT-Pro-B Natriuret Pep Discharge - Discharge Clinical Impression: Pneumonia Qualifiers: Pneumonia type: due to unspecified organism Laterality: right Lung location: lower lobe of lung Qualified Code(s): J18.1 - Lobar pneumonia, unspecified organism Condition: Good Disposition: HOME, SELF-CARE Additional Instructions: Based on your x-ray I do suspect you have a developing pneumonia. I will place you on an antibiotic. The antibiotic I have prescribed you is called doxycycline. Doxycycline will make your skin more sensitive to the sun so pl ease make sure you keep your skin covered or wear sunscreen whenever out in the sun. I will prescribe you some nebulizer vials to use for your nebulizer machine. Please do a breathing treatment every 4 hours as this will help you be able to clear mucus from your lungs. Please follow-up with your doctor on Saturday for reevaluation. Have a low threshold to return to the ER if you have difficulty breathing, wheezing not responding to nebulizer treatment, or if you feel that you are worsening in any way. Prescriptions: Albuterol Sulfate [Ventolin 0.083% Neb 2.5 mg/3 mL Ampul] 1 vial NEB Q4 #25 vial Doxycycline Hyclate 100 mg PO BID #14 capsule Referrals: VANI PIERCE ANP-C [NO LOCAL MD] - Follow up as needed
[2018-07-31] MEDS ORDERED: DOXYCYCLINE HYCLATE 100 MG TABLET PO ONE (03:53)
[2018-07-31 04:14] LABS: VENOUS BLOOD BASE EXCESS 9.2 mmol/L; VENOUS BLOOD HCO3 36.9 mmol/L (20-32); VENOUS BLOOD PH 7.36 (7.30-7.42)
[2018-07-31 04:24] LABS: VENOUS BLOOD PCO2 66.4 mmHg (35-63)
[2018-07-31 05:56] VITALS: BP 127/86
== END 2018-07-31 05:56 | disposition home or self-care (01) ==
LOC: ER 23:02
DX: J18.1 Lobar pneumonia, unspecified organism (principal); R06.02 Shortness of breath; R05 Cough; I10 Essential (primary) hypertension; E11.9 Type 2 diabetes mellitus without complications
CPT/HCPCS: 94640 ×2; 99285; 96374; 36415; 82553; 82550; 85025; 80053; 84484; 82803; 83880; 71045; A9270 ×2; J1940

== ENCOUNTER → 2018-09-29 | Outpatient (CLI) | payer MEDICARE, OTHER ==
[2018-09-29 11:03] LABS: ANION GAP 10 (5-19); BLOOD UREA NITROGEN 21 mg/dL (7-20); CALCIUM 9.1 mg/dL (8.4-10.2); CARBON DIOXIDE 33 mmol/L (22-30); CHLORIDE 96 mmol/L (98-107); GLUCOSE 286 mg/dL (75-110); POTASSIUM 4.7 mmol/L (3.6-5.0); SODIUM 138.5 mmol/L (137-145)
== END ==
LOC: OD 09:50
PROVIDERS: ATTEND Internal Medicine
DX: N19 Unspecified kidney failure (principal)
CPT/HCPCS: 36415; 80048

== ENCOUNTER → 2019-02-13 | Outpatient (CLI) | payer MEDICARE, OTHER ==
[2019-02-13 12:31] LABS: ALBUMIN 4.4 g/dL (3.5-5.0); ALKALINE PHOSPHATASE 80 U/L (38-126); ANION GAP 10 (5-19); ASPARTATE AMINO TRANSFERASE 21 U/L (17-59); BILIRUBIN,DIRECT 0.1 mg/dL (0.0-0.4); BILIRUBIN,TOTAL 0.7 mg/dL (0.2-1.3); BLOOD UREA NITROGEN 18 mg/dL (7-20); CALCIUM 9.9 mg/dL (8.4-10.2); CARBON DIOXIDE 34 mmol/L (22-30); CHLORIDE 101 mmol/L (98-107); CHOLESTEROL 167.86 mg/dL (0-200); GLUCOSE 135 mg/dL (75-110); POTASSIUM 4.6 mmol/L (3.6-5.0); TOTAL PROTEIN 7.7 g/dL (6.3-8.2); TRIGLYCERIDES 135 mg/dL (<150)
[2019-02-13 12:44] LABS: DIRECT LDL 106 mg/dL (<100)
== END ==
LOC: OD 10:34
PROVIDERS: ATTEND Internal Medicine
DX: E55.9 Vitamin D deficiency, unspecified (principal); R10.84 Generalized abdominal pain; E78.5 Hyperlipidemia, unspecified
CPT/HCPCS: 36415; 80053; 80061; 82306

== ENCOUNTER → 2020-02-15 | Outpatient (CLI) | payer MEDICARE, OTHER ==
[2020-02-15 09:22] LABS: ABSOLUTE EOSINOPHILS # (AUTO) 0.1 10^3/uL (0.0-0.6); ABSOLUTE LYMPHOCYTES (AUTO) 1.6 10^3/uL (0.5-4.7); ABSOLUTE MONOCYTES (AUTO) 0.4 10^3/uL (0.1-1.4); ABSOLUTE NEUT (AUTO) 3.9 10^3/uL (1.7-8.2); BASOPHILS % (AUTO) 0.7 % (0-2); EOSINOPHILS % (AUTO) 1.7 % (0-6); HEMATOCRIT 38.6 % (37.9-51.0); HEMOGLOBIN 13.2 g/dL (13.5-17.0); LYMPHOCYTES % (AUTO) 26.9 % (13-45); MEAN CORPUSCULAR HGB CONC 34.2 g/dL (32.0-36.0); MEAN CORPUSCULAR VOLUME 94 fl (80-97); PLATELET COUNT 164 10^3/uL (150-450); RED BLOOD COUNT 4.13 10^6/uL (4.35-5.55); RED CELL DISTRIBUTION WIDTH 14.1 % (11.5-14.0); SEGMENTED NEUTROPHILS % (AUTO) 64.7 % (42-78); TOTAL CELLS COUNTED % (AUTO) 100 %
[2020-02-15 09:50] LABS: ALBUMIN 4.3 g/dL (3.5-5.0); ALKALINE PHOSPHATASE 66 U/L (38-126); ANION GAP 8 (5-19); ASPARTATE AMINO TRANSFERASE 24 U/L (17-59); BILIRUBIN,TOTAL 0.6 mg/dL (0.2-1.3); BLOOD UREA NITROGEN 16 mg/dL (7-20); CALCIUM 9.9 mg/dL (8.4-10.2); CARBON DIOXIDE 35 mmol/L (22-30); CHLORIDE 99 mmol/L (98-107); CHOLESTEROL 126.44 mg/dL (0-200); GLUCOSE 161 mg/dL (75-110); POTASSIUM 4.4 mmol/L (3.6-5.0); TOTAL PROTEIN 7.1 g/dL (6.3-8.2); TRIGLYCERIDES 95 mg/dL (<150)
[2020-02-15 10:01] LABS: DIRECT LDL 63 mg/dL (<100)
== END ==
LOC: OD 08:28
PROVIDERS: ATTEND Internal Medicine
DX: E11.21 Type 2 diabetes mellitus with diabetic nephropathy (principal); I10 Essential (primary) hypertension; E78.5 Hyperlipidemia, unspecified; R53.83 Other fatigue
CPT/HCPCS: 36415; 80053; 80061; 83036; 84443; 85025